=== PATIENT | female | born 1990 | race Two or more races ===

== ENCOUNTER 2020-09-23 14:50 | Outpatient (REF) | payer MEDICAID, SELFPAY ==
[2020-09-25 09:02] LABS: C. trachomatis RNA TMA NOT DETECTED (NOT DETECTED); N. gonorrhoeae RNA TMA NOT DETECTED (NOT DETECTED)
[2020-09-26 18:32] LABS: HPV mRNA E6/E7 Not Detected (Not Detected)
== END 2020-09-23 14:51 | disposition home or self-care (01) ==
LOC: HO.LAB 14:50
PROVIDERS: PCP Nurse Practitioner Family; Referring Provider Nurse Practitioner Family; Visit Provider Obstetrics & Gynecology
DX: Z12.4 Encounter for screening for malignant neoplasm of cervix (principal); R31.29 Other microscopic hematuria; R10.2 Pelvic and perineal pain
CPT/HCPCS: 36415; 81003; 81025; 87086; 87491; 87591; 87624; 88141; 88142

== ENCOUNTER 2020-10-02 15:02 | Outpatient (REF) | payer MEDICAID, SELFPAY ==
--- NOTE | 2020-10-02 15:07 | US_ITS ---
EXAMINATION: ULTRASOUND PELVIS. CLINICAL INFORMATION: Pelvic and perineal pain. COMPARISON: None TECHNIQUE: Transabdominal and transvaginal ultrasound pelvis performed. FINDINGS: The uterus is anteverted and anteflexed measuring 9.1 cm in length, 3.9 cm in AP and 4.9 cm in transverse dimension. The uterus is homogeneous in echotexture without any focal lesions. The endometrial thickness measures 0.6 cm. Echogenic shadowing is seen in the cervical canal likely calcifications. Left ovary measures 2.7 x 2 0.1 to 2.4 cm and volume 7.1 mL. There is a small anechoic cyst measuring 2.2 x 1.5 x 1.6 cm. Right ovary measures 2.3 x 1.6 x 1.3 cm and volume 2.5 mL. The ovaries otherwise are unremarkable. There is trace free fluid in the cul-de-sac US/US pelvic complete IMPRESSION: Simple anechoic cyst measuring 2.2 cm in left ovary. The right ovary and uterus is unremarkable..
--- NOTE | 2020-10-02 15:07 | US_ITS ---
EXAMINATION: ULTRASOUND PELVIS. CLINICAL INFORMATION: Pelvic and perineal pain. COMPARISON: None TECHNIQUE: Transabdominal and transvaginal ultrasound pelvis performed. FINDINGS: The uterus is anteverted and anteflexed measuring 9.1 cm in length, 3.9 cm in AP and 4.9 cm in transverse dimension. The uterus is homogeneous in echotexture without any focal lesions. The endometrial thickness measures 0.6 cm. Echogenic shadowing is seen in the cervical canal likely calcifications. Left ovary measures 2.7 x 2 0.1 to 2.4 cm and volume 7.1 mL. There is a small anechoic cyst measuring 2.2 x 1.5 x 1.6 cm. Right ovary measures 2.3 x 1.6 x 1.3 cm and volume 2.5 mL. The ovaries otherwise are unremarkable. There is trace free fluid in the cul-de-sac US/US transvaginal IMPRESSION: Simple anechoic cyst measuring 2.2 cm in left ovary. The right ovary and uterus is unremarkable..
== END 2020-10-02 15:03 | disposition home or self-care (01) ==
LOC: HO.US 15:02
PROVIDERS: Visit Provider Obstetrics & Gynecology
DX: R10.2 Pelvic and perineal pain (principal)
CPT/HCPCS: 76830; 76856

== ENCOUNTER → 2020-10-07 14:48 | Outpatient (BNVA) | payer MEDICAID, SELFPAY | PROVIDERS: PCP Nurse Practitioner Family; Visit Provider Obstetrics & Gynecology | DX: R31.29 Other microscopic hematuria (principal); R10.2 Pelvic and perineal pain | CPT/HCPCS: 99212 ==

== ENCOUNTER 2020-11-11 13:12 | Outpatient (REF) | payer MEDICAID, SELFPAY ==
[2020-11-13 20:37] LABS: C. trachomatis RNA TMA NOT DETECTED (NOT DETECTED); N. gonorrhoeae RNA TMA NOT DETECTED (NOT DETECTED)
== END 2020-11-11 13:13 | disposition home or self-care (01) ==
LOC: HO.LAB 13:12
PROVIDERS: Visit Provider Obstetrics & Gynecology
DX: R31.29 Other microscopic hematuria (principal); Z30.09 Encounter for other general counseling and advice on contraception
CPT/HCPCS: 36415; 81003; 87491; 87591; 99212

== ENCOUNTER → 2020-11-25 11:17 | Outpatient (BNVA) | payer MEDICAID, SELFPAY | PROVIDERS: Visit Provider Advanced Practice Midwife ==

== ENCOUNTER → 2020-11-29 14:03 | Outpatient (BNVA) | payer MEDICAID, SELFPAY | PROVIDERS: Visit Provider Advanced Practice Midwife | DX: N92.6 Irregular menstruation, unspecified (principal); Z72.51 High risk heterosexual behavior | CPT/HCPCS: 99212 ==

== ENCOUNTER 2020-12-15 10:25 | Emergency (ER) | payer MEDICAID, SELFPAY | END 2020-12-15 11:13 | disposition left against medical advice (07) | PROVIDERS: Emergency Provider Emergency Medicine; PCP Nurse Practitioner Family | DX: R05 Cough (principal) ==

== ENCOUNTER → 2020-12-24 11:05 | Outpatient (BNVA) | payer MEDICAID, SELFPAY | PROVIDERS: PCP Nurse Practitioner Family; Visit Provider Advanced Practice Midwife | DX: Z30.42 Encounter for surveillance of injectable contraceptive (principal) | CPT/HCPCS: 96372; 99211; J1050 ==

== ENCOUNTER 2021-01-21 09:19 | Outpatient (REF) | payer MEDICAID, SELFPAY ==
--- NOTE | ~2021-01-21 | CT_ITS ---
EXAMINATION: CT ABDOMEN AND PELVIS WITHOUT AND WITH CONTRAST CLINICAL INFORMATION: Hematuria COMPARISON: Pelvic ultrasound September [address] of the abdomen and pelvis January 2014 TECHNIQUE: Multidetector volumetric imaging was performed of the abdomen and pelvis before and after the IV administration of 85 mL of Omnipaque 300 intravenous contrast. Sagittal and coronal reformatted images were obtained on the technologist's workstation. This CT examination was performed using dose optimization techniques as appropriate, variously including the following: *Automated exposure control *Adjustment of mA and/or kV according to patient size (this includes techniques or standardized protocols for targeted exams where dose is matched to indication/reason for exam; i.e. extremities or head) *Use of iterative reconstruction technique DLP: 670 mGy-cm FINDINGS: LUNG BASES: The visualized lung bases are unremarkable. LIVER, GALLBLADDER, AND BILIARY TREE: The liver is normal in size, shape, and attenuation. No focal hepatic lesion or biliary ductal dilatation is present. The gallbladder is unremarkable with no evidence of radiopaque gallstones, gallbladder wall thickening, or obvious pericholecystic inflammatory changes. PANCREAS: Unremarkable SPLEEN: Unremarkable ADRENAL GLANDS: Unremarkable KIDNEYS AND URETERS: The kidneys are normal in size, shape, and attenuation. No hydronephrosis, hydroureter, or calculi seen. The collecting systems are normal. The ureters are well-opacified with excreted contrast and are normal. BLADDER: Not optimally distended but appears unremarkable. GASTROINTESTINAL TRACT: The small and large bowel are unremarkable. The appendix is unremarkable. ABDOMINAL WALL: There is a small umbilical hernia containing fat. LYMPH NODES: Normal VASCULAR: Unremarkable PELVIC VISCERA: There are prominent pelvic vessels questionable for pelvic congestion. OSSEOUS STRUCTURES: Unremarkable CT/CT abdomen pelvis wo/w con IMPRESSION: No cause of hematuria seen.
[2021-01-21] MEDS: iohexoL 350 MG/ML 100 ML INFUS..BTL IV (10:32)
== END 2021-01-21 09:20 | disposition home or self-care (01) ==
LOC: HO.CT 09:19
PROVIDERS: Visit Provider Obstetrics & Gynecology
DX: R31.29 Other microscopic hematuria (principal)
CPT/HCPCS: 74178; Q9967

== ENCOUNTER 2021-01-26 09:20 | Emergency (ER) | payer MEDICAID, SELFPAY ==
[2021-01-26 09:29] VITALS: BP 107/77; PULSE 100; RESP 18; TEMP 36.8; O2SAT 98; BMI 22.6
--- NOTE | 2021-01-26 09:38 | ED_ITS ---
HPI - Ear Problem General Chief complaint: Ear Problems Stated complaint: L EAR PAIN Time Seen by Provider: 01/26/21 09:37 Source: patient Mode of arrival: ambulatory Limitations: no limitations History of Present Illness HPI Narrative: 30 years old female came in for evaluation of left ear pain. Left ear pain started 4 days ago, described as throbbing pain, with pain in the left side of the face, runny discharge from the nose, no recent swimming, no fever chills. Related Data Previous Rx's Medication Instructions Recorded medroxyprogesterone 150 mg/mL 150 mg IM [id number] #1 ml 11/25/20 intramuscular suspension amoxicillin-pot clavulanate 1 tab PO Q12H #20 tab 01/26/21 [Augmentin] ibuprofen 600 mg PO Q8H PRN #30 tab 01/26/21 Allergies Allergy/AdvReac Type Severity Reaction Status Date / Time bee pollen [BEE STINGS] Allergy Unknown SWELLING Verified 01/26/21 09:31 SEASONAL ALLERGIES Allergy Intermediate RUNNY NOSE Uncoded 10/07/20 15:00 AND WATERY EYES Seasonal Allergy Unknown Unknown Uncoded 10/07/20 15:00 Review of Systems Review of Systems: All other systems are reviewed and are negative Constitutional: Reports as per HPI and Reports no additional constitutional complaints Eyes: Reports as per HPI and Reports no additional eye complaints Reports system reviewed and no additional complaints, except as documented Cardiovascular: Reports as per HPI and Reports no additional cardiovascular complaints Respiratory: Reports as per HPI and Reports no additional respiratory complaints Gastrointestinal: Reports as per HPI and Reports no additional gastrointestinal complaints Genitourinary: Reports no additional female genitourinary complaints Musculoskeletal: Reports no additional musculoskeletal complaints Skin/Breast: Reports system reviewed and no additional complaints, except as docu Psychiatric: Reports no additional psychiatric complaints Endocrine: Reports no additional endocrine complaints Hematologic/Lymphatic: Reports no additional hematologic/lymphatic complaints Allergic/Immunologic: Reports no additional allergic/immunologic complaints Reports system reviewed and no additional complaints, except as documented and Reports Abnormal speech present [facility] Past Medical History Medical History Anxiety Depression Left anterior shoulder pain Family History Family History Mother Breast cancer Brother Lymphoma Paternal Uncle No problems noted. Social History Social History Alcohol intake: never Smoking Status: Never smoker Advance Directives: Yes Advance Directives Information Provided: No Advance Directives on File: No Patient : No Gender identity: female Physical Exam Vital Signs: Vital Signs: Last Vital Signs Temp 98.2 F 01/26/21 09:29 Pulse 100 01/26/21 09:29 Resp 18 01/26/21 09:29 BP 107/77 01/26/21 09:29 Pulse Ox 98 01/26/21 09:29 Body Mass Index 22.6 Vital signs have been reviewed as appeared to be correct. Blood pressure normal. Heart rate normal. Respiration rate normal. Temperature normal. Oxygen saturation normal. Appearance: Alert. Oriented X3. No acute distress. Head: Normal external exam. Normocephalic. Atraumatic. No Walsh signs noted. No raccoon eyes noted Eyes: PERRLA. EOMI. Conjunctiva and sclera normal. Eyelids normal. ENT: Left TM erythematous, no bulging, normal external canal with no exudate or swelling. Tenderness over left frontal/maxillary sinuses with percussion. Pharynx normal. Uvula midline. Moist mucous membranes. No trismus noted. No drooling noted. No muffled voice noted. Neck: Normal inspection. Neck supple. FROM. No adenopathy. Thyroid Normal. No meningeal signs. No neck mass noted. CVS: Normal heart rate and rhythm. Heart sound normal. No murmurs noted. Pulses normal throughout. Respiratory: No respiratory distress. Painless inspiration. Breath sounds normal. No wheezes/rales/rhonchi noted. Chest nontender. No accessory muscle usage noted or decreased air movement noted. Abdomen: Soft and nontender. Bowel sounds normal in all 4 quadrants. No distention noted. No organomegaly noted. No visible injury noted. Back: No CVA tenderness. Full range of motion noted. Skin: Skin warm and dry. Normal skin color. Normal skin turgor. No rashes/lesions/lacerations noted. Extremities: No lower extremity edema. Extremities exhibit normal range of motion. Extremities nontender. Neuro: Oriented X 3. No motor deficit. No sensory deficit. Reflexes normal. Course Course Course Narrative: Left otitis media/left sinusitis. Start patient on Augmentin/NSAIDs. Discharge Plan Discharge Clinical Impression: Otitis media Qualifiers: Otitis media type: unspecified nonsuppurative Laterality: left Qualified Code(s): H65.92 - Unspecified nonsuppurative otitis media, left ear Sinusitis Qualifiers: Sinusitis location: maxillary Chronicity: acute Recurrence: non-recurrent Qualified Code(s): J01.00 - Acute maxillary sinusitis, unspecified Patient Disposition: Home, Self-Care Prescriptions: New amoxicillin-pot clavulanate [Augmentin] 875-125 mg tablet 1 tab PO Q12H Qty: 20 RF: 0 ibuprofen 600 mg tablet 600 mg PO Q8H PRN (Reason: pain) Qty: 30 RF: 0 No Action medroxyprogesterone [Depo-Provera] 150 mg/mL suspension 150 mg IM [id number] Qty: 1 RF: 3 Referrals: Nithya Walsh NP [Primary Care Provider] - 2 days Stand Alone Forms: Work/School Release
[2021-01-26] MEDS: Amoxicillin/Potassium Clav 875 MG TABLET PO (09:43)
[2021-01-26] MEDS: Ibuprofen 400 MG TABLET PO (09:43)
[2021-01-26 09:46] VITALS: RESP 17
== END 2021-01-26 09:50 | disposition home or self-care (01) ==
PROVIDERS: Emergency Provider Emergency Medicine; PCP Nurse Practitioner Family
DX: H65.92 Unspecified nonsuppurative otitis media, left ear (principal); J01.00 Acute maxillary sinusitis, unspecified; H92.02 Otalgia, left ear; Z79.899 Other long term (current) drug therapy
CPT/HCPCS: 99283

== ENCOUNTER → 2021-01-27 13:48 | Outpatient (BNVA) | payer MEDICAID, SELFPAY | PROVIDERS: PCP Nurse Practitioner Family; Visit Provider Obstetrics & Gynecology ==

== ENCOUNTER 2021-02-12 13:44 | Outpatient (REF) | payer MEDICAID, SELFPAY ==
[2021-02-13 06:41] LABS: CT PCR NOT DETECTED (Not Detect.); NG PCR NOT DETECTED (Not Detect.)
[2021-02-13 08:39] LABS: BV Int Neg Control Negative (Negative); BV Int Pos Control Positive (Positive)
== END 2021-02-12 13:45 | disposition home or self-care (01) ==
LOC: HO.LAB 13:44
PROVIDERS: PCP Nurse Practitioner Family; Visit Provider Advanced Practice Midwife
DX: N89.8 Other specified noninflammatory disorders of vagina (principal); B37.3 Candidiasis of vulva and vagina; Z20.2 Contact with and (suspected) exposure to infections with a predominantly sexual mode of transmission
CPT/HCPCS: 87480; 87491; 87510; 87591; 87660; 99212

== ENCOUNTER 2021-03-05 11:07 | Outpatient (REF) | payer MEDICAID, SELFPAY ==
[2021-03-05 13:14] LABS: Urine Cytology See Pathology rpt
== END 2021-03-05 11:08 | disposition home or self-care (01) ==
LOC: HO.LNP 11:07
PROVIDERS: PCP Nurse Practitioner Family
DX: R31.9 Hematuria, unspecified (principal)
CPT/HCPCS: 88112; 99202

== ENCOUNTER → 2021-03-14 14:16 | Outpatient (BNVA) | payer MEDICAID, SELFPAY | PROVIDERS: PCP Nurse Practitioner Family; Visit Provider Advanced Practice Midwife | DX: Z30.42 Encounter for surveillance of injectable contraceptive (principal) | CPT/HCPCS: 96372; 99211 ==

== ENCOUNTER 2021-04-05 09:55 | Emergency (ER) | payer MEDICAID, SELFPAY ==
--- NOTE | ~2021-04-05 | XR_ITS ---
EXAMINATION: RIGHT ELBOW AND RIGHT FOOT CLINICAL INFORMATION: Fall with elbow and right foot pain. COMPARISON: April 18, 2011 of the right elbow TECHNIQUE: Three-view right elbow and three-view right foot FINDINGS: Right foot: There is no evidence of acute fracture or dislocation of the right foot. No significant soft tissue swelling is appreciated. Joint spaces are maintained. Right elbow: 3 views of the right elbow do not demonstrate any evidence of acute fracture or dislocation. No right elbow effusion is seen. XR/XR foot RT min 3V IMPRESSION: No significant right foot or right elbow abnormality is appreciated.
--- NOTE | ~2021-04-05 | XR_ITS ---
EXAMINATION: RIGHT ELBOW AND RIGHT FOOT CLINICAL INFORMATION: Fall with elbow and right foot pain. COMPARISON: April 18, 2011 of the right elbow TECHNIQUE: Three-view right elbow and three-view right foot FINDINGS: Right foot: There is no evidence of acute fracture or dislocation of the right foot. No significant soft tissue swelling is appreciated. Joint spaces are maintained. Right elbow: 3 views of the right elbow do not demonstrate any evidence of acute fracture or dislocation. No right elbow effusion is seen. XR/XR elbow RT min 3V IMPRESSION: No significant right foot or right elbow abnormality is appreciated.
[2021-04-05 10:10] VITALS: BP 116/78; PULSE 87; RESP 16; TEMP 36.8; O2SAT 98; BMI 25.0
--- NOTE | 2021-04-05 10:19 | ED_ITS ---
HPI - Fall General Chief Complaint: Fall Stated Complaint: FELL DOWN STAIRS Time Seen by Provider: 04/05/21 10:17 Source: patient Mode of arrival: ambulatory Limitations: no limitations History of Present Illness HPI Narrative: 31-year-old female came in for evaluation of right elbow/right foot pain after fall. Started last night when she was going down stairs holding a garbage bag in her left hand, lost balance and fell down few steps landing on right elbow and right heel. Patient is able to ambulate but today is getting worse due to pain in right heel. Related Data Previous Rx's Medication Instructions Recorded medroxyprogesterone 150 mg/mL 150 mg IM [id number] #1 ml 11/25/20 intramuscular suspension ibuprofen 600 mg PO Q8H PRN #30 tab 01/26/21 fluconazole 150 mg tablet 150 mg PO Q3D #2 tab 02/12/21 metronidazole 500 mg tablet 500 mg PO BID 7 Days #14 tab 02/13/21 Allergies Allergy/AdvReac Type Severity Reaction Status Date / Time bee pollen [BEE STINGS] Allergy Unknown SWELLING Verified 03/27/21 12:33 SEASONAL ALLERGIES Allergy Intermediate RUNNY NOSE Uncoded 03/27/21 12:33 AND WATERY EYES Seasonal Allergy Unknown Unknown Uncoded 03/27/21 12:33 Review of Systems Review of Systems: All other systems are reviewed and are negative Constitutional: Reports as per HPI and Reports no additional constitutional complaints Eyes: Reports as per HPI and Reports no additional eye complaints Reports system reviewed and no additional complaints, except as documented Cardiovascular: Reports as per HPI and Reports no additional cardiovascular complaints Respiratory: Reports as per HPI and Reports no additional respiratory complaints Gastrointestinal: Reports as per HPI and Reports no additional gastrointestinal complaints Genitourinary: Reports no additional female genitourinary complaints Musculoskeletal: Reports no additional musculoskeletal complaints Skin/Breast: Reports system reviewed and no additional complaints, except as docu Psychiatric: Reports no additional psychiatric complaints Endocrine: Reports no additional endocrine complaints Hematologic/Lymphatic: Reports no additional hematologic/lymphatic complaints Allergic/Immunologic: Reports no additional allergic/immunologic complaints Reports system reviewed and no additional complaints, except as documented and Reports Abnormal speech present [facility] Past Medical History Medical History Aftercare following left shoulder joint replacement surgery Anxiety Depression Left anterior shoulder pain Surgical History H/O arthroscopy of shoulder Family History Family History Mother Breast cancer Brother Lymphoma Paternal Uncle No problems noted. Social History Social History Alcohol intake: never Advance Directives: Yes Advance Directives Information Provided: No Advance Directives on File: No Patient : No Gender identity: female Physical Exam Vital Signs: Vital Signs: Last Vital Signs Temp 98.2 F 04/05/21 10:10 Pulse 87 04/05/21 10:10 Resp 16 04/05/21 10:10 BP 116/78 04/05/21 10:10 Pulse Ox 98 04/05/21 10:10 Body Mass Index 25.0 Vital signs have been reviewed as appeared to be correct. Blood pressure normal. Heart rate normal. Respiration rate normal. Temperature normal. Oxygen saturation normal. Appearance: Alert. Oriented X3. No acute distress. Head: Normal external exam. Normocephalic. Atraumatic. No Walsh signs noted. No raccoon eyes noted Eyes: PERRLA. EOMI. Conjunctiva and sclera normal. Eyelids normal. ENT: TM's Normal. Pharynx normal. Uvula midline. Moist mucous membranes. No trismus noted. No drooling noted. No muffled voice noted. Neck: Normal inspection. Neck supple. FROM. No adenopathy. Thyroid Normal. No meningeal signs. No neck mass noted. CVS: Normal heart rate and rhythm. Heart sound normal. No murmurs noted. Pulses normal throughout. Respiratory: No respiratory distress. Painless inspiration. Breath sounds normal. No wheezes/rales/rhonchi noted. Chest nontender. No accessory muscle usage noted or decreased air movement noted. Abdomen: Soft and nontender. Bowel sounds normal in all 4 quadrants. No distention noted. No organomegaly noted. No visible injury noted. Back: No CVA tenderness. Full range of motion noted. Skin: Skin warm and dry. Normal skin color. Normal skin turgor. No rashes/lesions/lacerations noted. Extremities: Right upper extremity in held in flexion position, tenderness over medial aspect of the right elbow, no deformity, no hematoma, no limited range of motion due to pain. Right here tenderness, no step-off, no deformity. Neuro: Oriented X 3. No motor deficit. No sensory deficit. Reflexes normal. Course Course Course Narrative: Assessment and plan. 31-year-old female status post fall with right elbow/right heel pain. X-ray show no acute fracture. Will sling the right elbow, reassure, use NSAIDs p.r.n. pain. MDM - Fall Imaging Data Right elbow/right foot x-ray: Radiologist's impression: IMPRESSION: No significant right foot or right elbow abnormality is appreciated. Discharge Plan Discharge Clinical Impression: Contusion of elbow, right Qualifiers: Encounter type: initial encounter Qualified Code(s): S50.01XA - Contusion of right elbow, initial encounter Contusion of foot, right Qualifiers: Encounter type: initial encounter Qualified Code(s): S90.31XA - Contusion of right foot, initial encounter Patient Disposition: Home, Self-Care Instructions: Contusion in Adults (ED) Prescriptions: No Action metronidazole [Flagyl] 500 mg tablet 500 mg PO BID 7 Days Qty: 14 RF: 0 ibuprofen 600 mg tablet 600 mg PO Q8H PRN (Reason: pain) Qty: 30 RF: 0 fluconazole 150 mg tablet 150 mg PO Q3D Qty: 2 RF: 2 medroxyprogesterone [Depo-Provera] 150 mg/mL suspension 150 mg IM [id number] Qty: 1 RF: 3 Referrals: Nithya Walsh, DISPUTE COORDINATOR [Primary Care Provider] - 2 days
[2021-04-05] MEDS: Ibuprofen 600 MG TABLET PO (10:26)
== END 2021-04-05 11:43 | disposition home or self-care (01) ==
PROVIDERS: Emergency Provider Emergency Medicine; PCP Nurse Practitioner Family
DX: S50.01XA Contusion of right elbow, initial encounter (principal); S90.31XA Contusion of right foot, initial encounter; W10.9XXA Fall (on) (from) unspecified stairs and steps, initial encounter; Y93.E9 Activity, other interior property and clothing maintenance; Y92.038 Other place in apartment as the place of occurrence of the external cause; Y99.9 Unspecified external cause status
CPT/HCPCS: 73080; 73630; 99284

== ENCOUNTER → 2021-06-06 13:38 | Outpatient (BNVA) | payer MEDICAID, SELFPAY | PROVIDERS: Visit Provider Advanced Practice Midwife | DX: Z30.42 Encounter for surveillance of injectable contraceptive (principal) | CPT/HCPCS: 96372; 99211 ==

== ENCOUNTER 2021-08-09 03:27 | Emergency (ER) | payer MEDICAID, SELFPAY ==
[2021-08-09 03:42] VITALS: BP 109/73; PULSE 82; RESP 16; TEMP 36.8; O2SAT 98; BMI 25.0
[2021-08-09 04:06] LABS: Strep A Nucleic Acid Negative (Negative)
--- NOTE | 2021-08-09 04:48 | ED_ITS ---
HPI - Ear Problem General Chief complaint: Ear Problems Stated complaint: ear pain x4 days Time Seen by Provider: 08/09/21 04:47 Source: patient Mode of arrival: ambulatory History of Present Illness HPI Narrative: 31-year-old female who presents with left ear pain without associated fever, chills but states she has had a sore throat and is had also having pain along the the left side of her jaw. She denies noting any vesicles or sensing a burning sensation along med distribution. On talking with the patient she then realize that she actually has an ?infected left lower wisdom tooth?. Related Data Previous Rx's Medication Instructions Recorded medroxyprogesterone 150 mg/mL 150 mg IM [id number] #1 ml 11/25/20 intramuscular suspension (Depo-Provera) ibuprofen 600 mg tablet 600 mg PO Q8H PRN #30 tab 01/26/21 fluconazole 150 mg tablet 150 mg PO Q3D #2 tab 02/12/21 metronidazole 500 mg tablet 500 mg PO BID 7 Days #14 tab 02/13/21 (Flagyl) amoxicillin 875 mg-potassium 1 tab PO Q12H 5 Days #10 tab 08/09/21 clavulanate 125 mg tablet (Augmentin) Allergies Allergy/AdvReac Type Severity Reaction Status Date / Time bee pollen [BEE STINGS] Allergy Unknown SWELLING Verified 07/02/21 09:44 SEASONAL ALLERGIES Allergy Intermediate RUNNY NOSE Uncoded 03/27/21 12:33 AND WATERY EYES Seasonal Allergy Unknown Unknown Uncoded 03/27/21 12:33 Review of Systems Review of Systems: Pertinent positives and negatives as stated in HPI 10 point review of systems is otherwise negative. [facility] Past Medical History Source: nursing notes reviewed Medical History Aftercare following left shoulder joint replacement surgery Anxiety Depression Left anterior shoulder pain Urge and stress incontinence Surgical History H/O arthroscopy of shoulder Family History Family History Mother Breast cancer Brother Lymphoma Paternal Uncle No problems noted. Social History Social History Alcohol intake: never Advance Directives: No Advance Directives Information Provided: Yes Patient : No Gender identity: Female Physical Exam Vital Signs: Vital Signs: Last Vital Signs Temp 98.2 F 08/09/21 03:42 Pulse 82 08/09/21 03:42 Resp 16 08/09/21 03:42 BP 109/73 08/09/21 03:42 Pulse Ox 98 08/09/21 03:42 Body Mass Index 25.0 VITAL SIGNS: Reviewed. GENERAL: Well developed, well nourished, in no acute distress. HEAD: Normocephalic/atraumatic EYES: PERRLA, EOMI EARS: Ext canals without abnormality, TMs non-bulging and non-erythematous NOSE: Nares patent bilateral OROPHARYNX: no oral lesions noted, posterior pharynx clear and non-erythematous without noted tonsillar enlargement/erythema/exudates, but noted discoloration and swelling at left lower was and 2 NECK: Supple, left posterior occipital adenopathy LUNGS: Normal breath sounds. SpO2<98> CARDIOVASCULAR: Regular rate and rhythm without noted murmurs ABDOMEN: Soft, non-tender, non-distended with bowel sounds. SKIN: Inspection of the skin reveals no rashes NEUROLOGIC: Alert and oriented x 4. Course Course Course Narrative: 31-year-old female with history and clinical presentation suggestive left lower wisdom tooth infection is eye plea contributing to patient's jaw and ear pain. History and clinical findings in consistent with shingles. Patient given initial antibiotics here in the emergency room as well as combination analgesics. She was then discharged home in stable condition. MDM - Ear Lab Data Labs: Lab Results 08/09/21 Range/Units 03:54 S. pyogenes GrpA ANTONINA Negative (Negative) Discharge Plan Discharge Clinical Impression: Dental infection Patient Disposition: Home, Self-Care Instructions: Toothache (ED) Additional Instructions: 1. Please complete the entire course of antibiotics. 2. Follow-up with a dentist in the next 2-3 days for evaluation and further management of your left lower wisdom tooth. 3. Recommend [id number] Tylenol/ibuprofen as needed for pain control. Return to the ER for acute worsening of symptoms. Prescriptions: New amoxicillin-pot clavulanate [Augmentin] 875-125 mg tablet 1 tab PO Q12H 5 Days Qty: 10 RF: 0 No Action metronidazole [Flagyl] 500 mg tablet 500 mg PO BID 7 Days Qty: 14 RF: 0 ibuprofen 600 mg tablet 600 mg PO Q8H PRN (Reason: pain) Qty: 30 RF: 0 fluconazole 150 mg tablet 150 mg PO Q3D Qty: 2 RF: 2 medroxyprogesterone [Depo-Provera] 150 mg/mL suspension 150 mg IM [id number] Qty: 1 RF: 3
[2021-08-09] MEDS: Acetaminophen 325 MG TABLET 975 MG PO (05:20)
[2021-08-09] MEDS: Ketorolac Tromethamine 15 MG/ML VIAL IM (05:21)
[2021-08-09] MEDS: Amoxicillin/Potassium Clav 875 MG TABLET PO (05:21)
== END 2021-08-09 05:26 | disposition home or self-care (01) ==
PROVIDERS: Emergency Provider Student in an Organized Health Care Education/Training Program
DX: K04.7 Periapical abscess without sinus (principal)
CPT/HCPCS: 36415; 87651; 96372; 99283; 99284; J1885

== ENCOUNTER 2021-09-25 13:05 | Outpatient (REF) | payer MEDICAID, SELFPAY ==
[2021-09-26 13:15] LABS: CT PCR NOT DETECTED (Not Detect.); NG PCR NOT DETECTED (Not Detect.)
[2021-09-26 14:21] LABS: BV Int Neg Control Negative (Negative); BV Int Pos Control Positive (Positive)
== END 2021-09-25 13:06 | disposition home or self-care (01) ==
LOC: HO.LAB 13:05
PROVIDERS: Visit Provider Advanced Practice Midwife
DX: Z01.419 Encounter for gynecological examination (general) (routine) without abnormal findings (principal); N64.4 Mastodynia; D22.9 Melanocytic nevi, unspecified; Z80.3 Family history of malignant neoplasm of breast
CPT/HCPCS: 87480; 87491; 87510; 87591; 87660

== ENCOUNTER → 2021-10-02 12:32 | Outpatient (BNVA) | payer MEDICAID, SELFPAY | PROVIDERS: Visit Provider Advanced Practice Midwife | DX: Z30.42 Encounter for surveillance of injectable contraceptive (principal) | CPT/HCPCS: 96372; 99211 ==

== ENCOUNTER → 2022-01-02 09:10 | Outpatient (BNVA) | payer MEDICAID, SELFPAY | PROVIDERS: PCP Nurse Practitioner Family; Visit Provider Advanced Practice Midwife | DX: Z30.42 Encounter for surveillance of injectable contraceptive (principal) | CPT/HCPCS: 96372; 99211 ==

== ENCOUNTER → 2022-04-22 10:06 | Outpatient (BNVA) | payer MEDICAID, SELFPAY | PROVIDERS: PCP Nurse Practitioner Family; Visit Provider Advanced Practice Midwife | DX: Z30.42 Encounter for surveillance of injectable contraceptive (principal); Z32.02 Encounter for pregnancy test, result negative | CPT/HCPCS: 81025; 99212 ==

== ENCOUNTER → 2022-04-28 09:13 | Outpatient (BNVA) | payer MEDICAID, SELFPAY | PROVIDERS: PCP Nurse Practitioner Family; Visit Provider Advanced Practice Midwife | DX: Z30.42 Encounter for surveillance of injectable contraceptive (principal) | CPT/HCPCS: 96372; 99211 ==

== ENCOUNTER 2022-07-22 15:30 | Outpatient (REF) | payer MEDICAID, SELFPAY ==
[2022-07-23 09:06] LABS: BV Int Neg Control Negative (Negative); BV Int Pos Control Positive (Positive)
== END 2022-07-22 15:31 | disposition home or self-care (01) ==
LOC: HO.LNP 15:30
PROVIDERS: Visit Provider Advanced Practice Midwife
DX: Z30.42 Encounter for surveillance of injectable contraceptive (principal); N89.8 Other specified noninflammatory disorders of vagina
CPT/HCPCS: 87480; 87510; 87660; 96372; 99212

== ENCOUNTER → 2022-10-09 11:09 | Outpatient (BNVA) | payer MEDICAID, SELFPAY | PROVIDERS: PCP Nurse Practitioner Family; Visit Provider Advanced Practice Midwife | DX: Z13.89 Encounter for screening for other disorder (principal) ==

== ENCOUNTER → 2022-10-23 14:16 | Outpatient (BNVA) | payer MEDICAID, SELFPAY | PROVIDERS: PCP Nurse Practitioner Family; Visit Provider Obstetrics & Gynecology | DX: Z30.42 Encounter for surveillance of injectable contraceptive (principal) | CPT/HCPCS: 96372; 99211 ==

== ENCOUNTER → 2023-01-28 14:56 | Outpatient (BNVA) | payer MEDICAID, SELFPAY | PROVIDERS: PCP Nurse Practitioner Family; Visit Provider Obstetrics & Gynecology | DX: Z30.42 Encounter for surveillance of injectable contraceptive (principal) | CPT/HCPCS: 96372; 99211 ==

== ENCOUNTER 2023-04-02 10:15 | Emergency (ER) | payer OTHER, SELFPAY ==
[2023-04-02 11:29] VITALS: BP 110/72; PULSE 66; RESP 16; TEMP 35.9; O2SAT 99; BMI 22.8
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
== END 2023-04-02 11:46 | disposition home or self-care (01) ==
LOC: HO.ED 11:43
PROVIDERS: Emergency Provider Emergency Medicine; PCP Nurse Practitioner Family
DX: Z04.1 Encounter for examination and observation following transport accident (principal); M54.2 Cervicalgia
CPT/HCPCS: 99282; 99283

== ENCOUNTER 2023-05-06 09:32 | Outpatient (AMB) | payer OTHER, SELFPAY ==
[2023-05-06 09:37] VITALS: BP 90/54; BMI 21.9
--- NOTE | 2023-05-06 09:37 | A.OFFVIS_ITS ---
Intake Vital Signs 05/06/23 09:37 Height 5 ft 6 in Weight 136 lb BMI 21.9 BP 90/54 L Intake Visit Reasons: Re start DEPO Allergies bee pollen [BEE STINGS] Allergy (Unknown, Verified 05/06/23 09:41) SWELLING SEASONAL ALLERGIES Allergy (Intermediate, Uncoded 10/09/22 11:28) RUNNY NOSE AND WATERY EYES HPI HPI Comments History of Present Illness Details She is here for Depo- Provera injection and is overdue by a week. Denies UPI for the last 14 days. Reports left sided sharp pelvic pain in ovary, pressure with urination and vaginal discharge. Voices concerns of bone effects while using Depo. She denies any contraindications to control such as: migraines with aura, history of DVT or pulmonary emboli, high blood pressure, liver disease, thrombolic disorders, Lupus, +ALICE, or smoking. [facility] Medical History Aftercare following left shoulder joint replacement surgery Anxiety Depression Encounter for management and injection of depo-Provera Female pelvic pain FH: breast cancer in first degree relative Left anterior shoulder pain Microhematuria Pelvic pain Sensation of pressure in bladder area Surveillance for Depo-Provera contraception Urge and stress incontinence Vaginal Discharge Vaginal irritation Surgical History H/O arthroscopy of shoulder Family History Mother Breast cancer Cervical cancer, Onset Age: 40 Brother Lymphoma Paternal Uncle No problems noted. 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 Current occupational exposures/hazards: No Sexual orientation: Straight/Heterosexual Gender identity: Female Female Reproductive History Menstrual Age of Menarche: 12 Physical Exam Vital Signs: Last Vital Signs BP 90/54 L 05/06/23 09:37 BMI result Body Mass Index 21.9 Const General: cooperative, healthy appearing, comfortable, no acute distress, well developed, alert and awake Other: mildly tender throughout the pelvis General: Yes bladder normal to palpation External Female Exam: normal external appearance and normal appearance of the urethra Speculum Exam - Vagina: normal appearance of the vagina, normal palpation and normal vaginal discharge Speculum Exam - Cervix: normal appearance of the cervix and normal palpation Bimanual exam- vagina & uterus: normal bimanual exam, normal palpation, bladder normal to palpation and normal palpation Bimanual Exam- Adnexa, other: normal adnexae and no masses Office Procedures Depo Questionnaire If YES to any of the following questions, please consult a provider. Date of last injection: 01/28/23 Date of last gynecology exam: 10/09/22 Menstrual pattern since last injection has been: Not Applicable test in office results: Negative Irregular bleeding?: No Breast lumps or other breast changes?: No Changes in weight or appetite?: No Depression or changes in mood?: No Abnormal hair growth or loss?: No Skin problems (rash, acne, discoloration)?: No Pain at the injection site?: No Headaches?: No Nervousness?: No Abdominal pain or cramping?: Yes (pelvic pain) Dizziness or nausea?: No Fatigue or weakness?: No Decrease in sexual drive?: No Chest pain or shortness of breath?: No Swelling in arms or legs?: No Form completed by?: Edwin ramos LPN Office Meds Depo-Provera Performing Provider: Olivia Lima CNM Administered by: Hawa Ramos LPN on 05/06/23 10:28 Dose Route Admin Location Lot Number Expiration Date NDC [employer] 150 mg IM rt. deltoid [id number] 06/12/25 54223-640-53 [facility] Results AMB Test Urine AMB Test Urine Negative Last Edit by NATHAN Ocampo on 05/06/23 09:52 AMB Urinalysis, Automated UA Leukoctes 0.5 Jeffrey/uL Last Edit by NATHAN Ocampo on 05/06/23 10:3 4 UA Nitrite Negative Last Edit by NATHAN Ocampo on 05/06/23 10:34 UA Urobilinogen 0 mg/dL Last Edit by NATHAN Ocampo on 05/06/23 10:3 4 UA Protein 1 mg/dL Last Edit by NATHAN Ocampo on 05/06/23 10:34 UA pH 6.0 Last Edit by Rose Enriqueta Corado A on 05/06/23 10:34 UA Blood 3 [place]/uL Last Edit by Rose Enriqueta Houghbrendaanaid RMA on 05/06/23 10:34 UA Specific [place] 1.020 Last Edit by Rose Enriqueta Houghbrendaanaid RMA on 05/06/23 10:34 UA Ketone Negative Last Edit by Rose Enriqueta Corado A on 05/06/23 10:34 UA Bilirubin 0 mg/dL Last Edit by Rose Enriqueta Corado RMA on 05/06/23 10:34 UA Glucose 0 mg/dL Last Edit by Rosejair Corado A on 05/06/23 10:34 Results Reviewed Results Reviewed: Laboratory Last Values Urine pH (Auto) 6.0 05/06/23 10:19 Specific [place] (Auto) 1.020 05/06/23 10:19 Urine Protein (Auto) 1 mg/dL 05/06/23 10:19 Glucose (UA)(Auto) 0 mg/dL 05/06/23 10:19 Urine Ketones (Auto) Negative 05/06/23 10:19 Urine Blood (Auto) 3 [place]/uL 05/06/23 10:19 Urine Nitrite (Auto) Negative 05/06/23 10:19 Urine Bilirubin (Auto) 0 mg/dL 05/06/23 10:19 Urine Urobilinogen (Auto) 0 mg/dL 05/06/23 10:19 Leukocyte Esterase (Auto) 0.5 [place]/uL 05/06/23 10:19 [facility] Clinic Negative 05/06/23 09:51 Assessment & Plan Assessment & Plan (1) Encounter for management and injection of depo-Provera: Code(s): Z30.42 - Encounter for surveillance of injectable contraceptive Plan: Discussed: Reviewed use, 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 She was instructed to go to ER if she develops loss of vision, severe headache that does not resolve, chest pain, difficulty breathing, abdominal pain, or pain or tenderness in extremity or new breast lumps. Call the office with any concerns. Encouraged to use condoms for back up plan for 7 days. Return for Depo injection every 12 weeks. Encouraged to schedule AG. All of her questions and concerns were addressed to the best of my ability and shared decision making. She is agreeable to plan of care. (2) Pelvic pain: Code(s): R10.2 - Pelvic and perineal pain Plan: Pelvic US ordered. Follow up in person for results. If experience abdominal pain or increase in pelvic pain, report to ED. BV testing and GC/CT panel done today. Await results and treat accordingly. (3) Vaginal Discharge: Code(s): N89.8 - Other specified noninflammatory disorders of vagina (4) Sensation of pressure in bladder area: Code(s): R39.89 - Other symptoms and signs involving the genitourinary system Orders: Orders US pelvic and transvaginal Today R10.2 - Pelvic and perineal pain Urine Culture Today R10.2 - Pelvic and perineal pain, R39.89 - Other symptoms and signs involving the genitourinary system Bacterial Vaginosis Panel Today N89.8 - Other specified noninflammatory disorders of vagina, R10.2 - Pelvic and perineal pain CT NG by PCR Today N89.8 - Other specified noninflammatory disorders of vagina, R10.2 - Pelvic and perineal pain AMB Medroxyprogesterone Injection Patient Supplied Today Z30.42 - Encounter for surveillance of injectable contraceptive AMB HCG Urine Test Today Z32.02 - Encounter for test, result negative AMB Urinalysis Automated Today R10.2 - Pelvic and perineal pain, R39.89 - Other symptoms and signs involving the genitourinary system Coding Level of Care Code Est Pt Level 4 (13654) Diagnoses Encounter for management and injection of depo-Provera Z30.42 Pelvic pain R10.2 Vaginal Discharge N89.8 Sensation of pressure in bladder area R39.89
== END 2023-05-06 10:22 | disposition home or self-care (01) ==
LOC: HO.HWSW 09:32
PROVIDERS: PCP Nurse Practitioner Family; Visit Provider Advanced Practice Midwife
DX: Z30.42 Encounter for surveillance of injectable contraceptive (principal); R10.2 Pelvic and perineal pain; N89.8 Other specified noninflammatory disorders of vagina; R39.89 Other symptoms and signs involving the genitourinary system; Z32.02 Encounter for pregnancy test, result negative
CPT/HCPCS: 99214

== ENCOUNTER 2023-05-06 09:32 | Outpatient (REF) | payer OTHER, SELFPAY | END 2023-05-06 09:33 | disposition home or self-care (01) | LOC: HO.LNP 09:32 | PROVIDERS: PCP Nurse Practitioner Family; Visit Provider Advanced Practice Midwife | DX: N94.89 Other specified conditions associated with female genital organs and menstrual cycle (principal); R10.2 Pelvic and perineal pain; N89.8 Other specified noninflammatory disorders of vagina; R39.89 Other symptoms and signs involving the genitourinary system; Z30.42 Encounter for surveillance of injectable contraceptive | CPT/HCPCS: 96372; 99212; J1050 ==

== ENCOUNTER 2023-05-06 10:19 | Outpatient (REF) | payer OTHER, SELFPAY ==
[2023-05-07 04:06] LABS: CT PCR NOT DETECTED (Not Detect.); NG PCR NOT DETECTED (Not Detect.)
[2023-05-07 15:42] LABS: BV Int Neg Control Negative (Negative); BV Int Pos Control Positive (Positive)
== END 2023-05-06 10:20 | disposition home or self-care (01) ==
LOC: HO.LAB 10:19
PROVIDERS: Visit Provider Advanced Practice Midwife
DX: N89.8 Other specified noninflammatory disorders of vagina (principal); R10.2 Pelvic and perineal pain; R39.89 Other symptoms and signs involving the genitourinary system; Z32.02 Encounter for pregnancy test, result negative
CPT/HCPCS: 0353U; 81003; 81025; 87086; 87480; 87510; 87660

== ENCOUNTER 2023-05-31 10:54 | Outpatient (REF) | payer OTHER, SELFPAY ==
--- NOTE | ~2023-05-31 | US_ITS ---
EXAMINATION: US PELVIS CLINICAL INFORMATION: Pelvic and perineal pain LMP: Unknown COMPARISON: Pelvic ultrasound 10/02/2020 TECHNIQUE: Ultrasound of the pelvis is performed using both transabdominal and transvaginal transducers along with Doppler. Transvaginal imaging is performed due to inadequate visualization transabdominally. FINDINGS: Uterus: The uterus is anteverted and measures 7.5 x 3.8 x 5.5 cm. Prominent vessels are seen within the periphery of the uterus. The endometrium measures 0.3 cm. Trace fluid is seen within the fundal aspect of the endometrium. Adnexa: Both ovaries are visualized. There is normal color flow to the adnexa. There is no ovarian torsion. There is no pelvic ascites or fluid collection. Right ovary measures 2.7 x 1.7 x 1.5 cm. Volume 3.6 mL. Left ovary measures 3.8 x 1.8 x 2.3 cm. Volume 7.1 mL. 1.7 x 0.8 x 1.5 cm follicle most likely represents a dominant follicle is a normal finding. No follow-up imaging of this finding is recommended. There is prominent vascularity in the left adnexa consistent with pelvic congestion syndrome. US/US pelvic and transvaginal IMPRESSION: 1. Prominent vessels are seen within the periphery of the uterus. 2. Prominent vascularity in the left adnexa consistent with pelvic congestion syndrome. 3. No significant finding within the left ovary. 4. Normal appearance of the right ovary.
== END 2023-05-31 10:55 | disposition home or self-care (01) ==
LOC: HO.US 10:54
PROVIDERS: PCP Nurse Practitioner Family; Visit Provider Advanced Practice Midwife
DX: R10.2 Pelvic and perineal pain (principal)
CPT/HCPCS: 76830; 76856

== ENCOUNTER 2023-06-16 11:23 | Outpatient (AMB) | payer OTHER, SELFPAY ==
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
[2023-06-16 11:46] VITALS: BP 96/54; BMI 21.8
== END 2023-06-16 12:08 | disposition home or self-care (01) ==
PROVIDERS: PCP Nurse Practitioner Family; Visit Provider Advanced Practice Midwife
DX: Z71.2 Person consulting for explanation of examination or test findings (principal); N64.4 Mastodynia; N94.89 Other specified conditions associated with female genital organs and menstrual cycle
CPT/HCPCS: 99213

== ENCOUNTER → 2023-06-16 11:23 | Outpatient (BNVA) | payer OTHER, SELFPAY | PROVIDERS: PCP Nurse Practitioner Family; Visit Provider Advanced Practice Midwife | DX: Z71.2 Person consulting for explanation of examination or test findings (principal); N64.4 Mastodynia; N94.89 Other specified conditions associated with female genital organs and menstrual cycle; Z80.3 Family history of malignant neoplasm of breast | CPT/HCPCS: 99212 ==

== ENCOUNTER 2023-07-05 14:56 | Outpatient (AMB) | payer OTHER, SELFPAY ==
--- NOTE | 2023-07-05 14:59 | MHC.OFFVIS ---
Intake Intake Visit Reasons: Vaginal itch Intake Note: pt c/o vag irritation and swelling after using pashto spring 4 days ago Weblogic Administrator: Weblogic Administrator Present (Nichole) Allergies bee pollen [BEE STINGS] Allergy (Unknown, Verified 07/05/23 15:06) SWELLING SEASONAL ALLERGIES Allergy (Intermediate, Uncoded 06/16/23 11:47) RUNNY NOSE AND WATERY EYES Medication List - Last Reviewed 07/05/23 by NATHAN Ocampo cholecalciferol (vitamin D3) 1,250 mcg PO QWEEK mecobalamin (vitamin B12) mcg IM medroxyprogesterone (Depo-Provera) 150 mg IM [id number] Is last menstrual period known: Yes Last menstrual period: 07/01/23 HPI Vaginal itch HPI Details Patient is here because about 4 days ago she washed with [place] soap and then she had sex with her that night and ever since then she started being much more itchy and inflamed and her vaginal area she has been using just cool water and trying to not scratch. She thinks that it was the soap that really set her up, then she started bleeding, light though she does not really get a period very much since she has been on Depo for so many years she loves the Depo but after having a long conversation at her more recent visit about the thinning of her bones she does not want to have that happen. She also is deficient in vitamin-D and has been taking that through her primary and also getting vitamin B12 shots as she was having trouble taking that. She has had 4 pregnancies and 2 were miscarriages any even with those she had severe hyper emesis gravidarum and with the 2 pregnancies that she carried she had severe hyperemesis for the entire 9 months. She works night shifts and she has been losing weight because she has trouble eating she is so exhausted she fixes the meals for her children but then is too tired to really eat well herself. She says all her coworkers have the opposite problem. She also recently had a visit where she was discussing her varicose veins in her pelvis that were contributing to pelvic pain. As part of this whole discussion she has been re considering her use of Depo-Provera for control and though she loves it she thinks she will be stopping but she has not fully decided what she will do instead so much of this visit was actually spent discussing options for her given that she is 33 years old combination control pills and their analogs the patches and rings would probably not be the best options to start at this stage. Discussed the other options available including Nexplanon and its side effects Mirena and its side effects and ParaGard IUD. (norethindrone OCPs were not addressed is in that the patient's reason for stopping pills in the past was forgetting). I gave her information about all 3 methods and she is going to think about it some more and eat if she decides before her next visit she could come in and signed the consent forms for methods that need to be ordered through her pharmacy provider or else she could come for the consultation visit and decide there. In terms of the vaginal itch she now has bleeding that is very much like a periods so while her vulva appears a little bit swollen it is not possible to fully see whether not it is consistent with yeast though it sounds like it could possibly be either chemical irritation from the Tristan[place] Spring or yeast. Discussed that when blood is present very often Gardnerella will be detected on testing so that is also possibility but it may not be the cause of the issue. Full teaching about all the methods and their side effects were done. Also discussed that I will treat the yeast as to her preference. Given that she has the menstrual flow now vaginal cream may not be too much of benefit but she thinks she preferred the pill in any case so I will prescribe Diflucan and she asked if she could have a cream in case she still has some symptoms. So I will prescribe both to her [facility] pharmacy. She has future appointments set up so she will be seen as scheduled. [facility] Medical History (Updated 07/05/23 @ 15:49 by Maryann Stokes CNM) Pelvic congestion syndrome Breast pain, right Sensation of pressure in bladder area Vaginal Discharge Pelvic pain FH: breast cancer in first degree relative Urge and stress incontinence Aftercare following left shoulder joint replacement surgery Vaginal irritation Microhematuria Female pelvic pain Anxiety Depression Left anterior shoulder pain Surgical History H/O arthroscopy of shoulder Family History Mother Breast cancer Cervical cancer, Onset Age: 40 Brother Lymphoma Paternal Uncle No problems noted. 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 Vagina pink moist with menses cervix multiparous pink moist with menses uterus small anteverted mobile nontender adnexa neither enlarged neither tender good tone with Kegel. External Female Exam: normal external appearance Speculum Exam - Vagina: normal appearance of the vagina and normal vaginal discharge Speculum Exam - Cervix: normal appearance of the cervix Bimanual exam- vagina & uterus: normal bimanual exam, uterine size normal, consistency normal, uterine mobility normal, uterine shape normal and non-tender Bimanual Exam- Adnexa, other: normal adnexae, no masses and No adnexal tenderness Assessment & Plan Assessment & Plan (1) Vaginal itching: Code(s): N89.8 - Other specified noninflammatory disorders of vagina (2) Surveillance for Depo-Provera contraception: Code(s): Z30.42 - Encounter for surveillance of injectable contraceptive (3) Pelvic congestion syndrome: Code(s): N94.89 - Other specified conditions associated with female genital organs and menstrual cycle (4) control counseling: Code(s): Z30.09 - Encounter for other general counseling and advice on contraception Plan Patient is here because about 4 days ago she washed with [place] soap and then she had sex with her that night and ever since then she started being much more itchy and inflamed and her vaginal area she has been using just cool water and trying to not scratch. She thinks that it was the soap that really set her up, then she started bleeding, light though she does not really get a period very much since she has been on Depo for so many years she loves the Depo but after having a long conversation at her more recent visit about the thinning of her bones she does not want to have that happen. She also is deficient in vitamin-D and has been taking that through her primary and also getting vitamin B12 shots as she was having trouble taking that. She has had 4 pregnancies and 2 were miscarriages any even with those she had severe hyper emesis gravidarum and with the 2 pregnancies that she carried she had severe hyperemesis for the entire 9 months. She works night shifts and she has been losing weight because she has trouble eating she is so exhausted she fixes the meals for her children but then is too tired to really eat well herself. She says all her coworkers have the opposite problem. She also recently had a visit where she was discussing her varicose veins in her pelvis that were contributing to pelvic pain. As part of this whole discussion she has been re considering her use of Depo-Provera for control and though she loves it she thinks she will be stopping but she has not fully decided what she will do instead so much of this visit was actually spent discussing options for her given that she is 33 years old combination control pills and their analogs the patches and rings would probably not be the best options to start at this stage. Discussed the other options available including Nexplanon and its side effects Mirena and its side effects and ParaGard IUD. (norethindrone OCPs were not addressed is in that the patient's reason for stopping pills in the past was forgetting). I gave her information about all 3 methods and she is going to think about it some more and eat if she decides before her next visit she could come in and signed the consent forms for methods that need to be ordered through her pharmacy provider or else she could come for the consultation visit and decide there. In terms of the vaginal itch she now has bleeding that is very much like a periods so while her vulva appears a little bit swollen it is not possible to fully see whether not it is consistent with yeast though it sounds like it could possibly be either chemical irritation from the [place] Spring or yeast. Discussed that when blood is present very often Gardnerella will be detected on testing so that is also possibility but it may not be the cause of the issue. Full teaching about all the methods and their side effects were done. Also discussed that I will treat the yeast as to her preference. Given that she has the menstrual flow now vaginal cream may not be too much of benefit but she thinks she preferred the pill in any case so I will prescribe Diflucan and she asked if she could have a cream in case she still has some symptoms. So I will prescribe both to her [facility] pharmacy. She has future appointments set up so she will be seen as scheduled. Orders: Orders Bacterial Vaginosis Panel Today N89.8 - Other specified noninflammatory disorders of vagina CT NG by PCR Today N89.8 - Other specified noninflammatory disorders of vagina Medications: New miconazole nitrate 2% (Miconazole-7) 1 appful vaginal BEDTIME 45 grams 1RF 7 days fluconazole may repeat second dose 72 hrs after first dose if symptoms persist 150 mg PO Q3D 2 tabs 0RF 2 doses Coding Level of Care Code Est Pt Level 3 (43814) Diagnoses Vaginal itching N89.8 Surveillance for Depo-Provera contraception Z30.42 Pelvic congestion syndrome N94.89 control counseling Z30.09
== END 2023-07-05 15:40 | disposition home or self-care (01) ==
PROVIDERS: PCP Nurse Practitioner Family; Visit Provider Advanced Practice Midwife
DX: N89.8 Other specified noninflammatory disorders of vagina (principal); Z30.42 Encounter for surveillance of injectable contraceptive; N94.89 Other specified conditions associated with female genital organs and menstrual cycle; Z30.09 Encounter for other general counseling and advice on contraception
CPT/HCPCS: 99213

== ENCOUNTER 2023-07-05 14:56 | Outpatient (REF) | payer OTHER, SELFPAY | END 2023-07-05 14:57 | disposition home or self-care (01) | LOC: HO.LAB 14:56 | PROVIDERS: PCP Nurse Practitioner Family; Visit Provider Advanced Practice Midwife | DX: N89.8 Other specified noninflammatory disorders of vagina (principal); N94.89 Other specified conditions associated with female genital organs and menstrual cycle | CPT/HCPCS: 99212 ==

== ENCOUNTER 2023-07-05 15:33 | Outpatient (REF) | payer OTHER, SELFPAY ==
[2023-07-06 09:29] LABS: CT PCR NOT DETECTED (Not Detect.); NG PCR NOT DETECTED (Not Detect.)
[2023-07-06 10:39] LABS: BV Int Neg Control Negative (Negative); BV Int Pos Control Positive (Positive)
== END 2023-07-05 15:34 | disposition home or self-care (01) ==
LOC: HO.LNP 15:33
PROVIDERS: Visit Provider Advanced Practice Midwife
DX: N89.8 Other specified noninflammatory disorders of vagina (principal)
CPT/HCPCS: 0353U; 87480; 87510; 87660

== ENCOUNTER 2023-08-02 09:01 | Outpatient (AMB) | payer OTHER, SELFPAY ==
[2023-08-02 09:23] VITALS: BMI 21.0
--- NOTE | 2023-08-02 09:23 | AM.OFFVISNUR ---
Intake Vital Signs 08/02/23 09:23 Height 5 ft 6 in Weight 130 lb 2 oz BMI 21.0 Intake Visit Reasons: Depo Hebrew Professor Required: No Allergies bee pollen [BEE STINGS] Allergy (Unknown, Verified 07/05/23 15:06) SWELLING SEASONAL ALLERGIES Allergy (Intermediate, Uncoded 06/16/23 11:47) RUNNY NOSE AND WATERY EYES Is last menstrual period known: No Post menopausal: No Patient : No Nursing Note Kaye is here for her scheduled Depo Provera injection. She is thinking about changing her control method. She reports she has been on Depo for ~6 yrs. She also reports her weight is dropping, ~4-5 lbs since 06/16/23. She is being followed by her PCP for weight loss. She comments, I think I need to start taking Ensure again . Pt was advised she can schedule a control consult and talk with her provider about the options. 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 She also reports she does not eat a healthy diet because she is so busy, stopping for fast food frequently. Her sleep is also disordered d/t working nights. Otherwise she has no complaints. She denies regular menses. Pt will f/u with her PCP re: her weight. Pt tolerated injection well. She will schedule an appt for Depo injection in 12 weeks. She will think about scheduling a control consult as well. Pt verbalizes understanding and agrees with plan. No further questions. Office Procedures Depo Questionnaire If YES to any of the following questions, please consult a provider. Date of last injection: 05/06/23 Date of last gynecology exam: 10/09/22 Menstrual pattern since last injection has been: Not Applicable Irregular bleeding?: No Breast lumps or other breast changes?: No Changes in weight or appetite?: Yes Depression or changes in mood?: No Abnormal hair growth or loss?: No Skin problems (rash, acne, discoloration)?: No Pain at the injection site?: No Headaches?: No Nervousness?: No Abdominal pain or cramping?: No Dizziness or nausea?: No Fatigue or weakness?: No Decrease in sexual drive?: No Chest pain or shortness of breath?: No Swelling in arms or legs?: No Form completed by?: Melida Melgar Office Meds Depo-Provera 150 mg/mL intramuscular syringe Performing Provider: Olivia Lima CNM Performing Location: [facility] Administered by: Melida Melgar on 08/02/23 09:38 Dose Route Admin Location Dispensed Lot Number Expiration Date NDC Web Project Manager 150 mg IM right deltoid 1 mL [id number] 07/13/25 12210-263-95 [facility] Coding Level of Care Code Established Pt Est Pt Level 1 (18069) Patient Type Established History Problem Focused Medical Decision Making Straight Forward Time Spent (min) 15 Assessment & Plan Assessment & Plan Orders: Orders AMB Medroxyprogesterone Injection Patient Supplied Today Z30.42 - Encounter for surveillance of injectable contraceptive
== END 2023-08-02 09:18 | disposition home or self-care (01) ==
LOC: HO.HWS 09:01
PROVIDERS: PCP Nurse Practitioner Family; Visit Provider Advanced Practice Midwife
DX: Z30.42 Encounter for surveillance of injectable contraceptive (principal)

== ENCOUNTER → 2023-08-02 09:01 | Outpatient (BNVA) | payer OTHER, SELFPAY | PROVIDERS: PCP Nurse Practitioner Family; Visit Provider Advanced Practice Midwife | DX: Z30.42 Encounter for surveillance of injectable contraceptive (principal) | CPT/HCPCS: 96372; 99211; J1050 ==

== ENCOUNTER 2023-09-14 16:46 | Emergency (ER) | payer OTHER, SELFPAY ==
[2023-09-14 17:41] VITALS: BP 110/64; PULSE 106; RESP 18; O2SAT 96; BMI 20.5
--- NOTE | 2023-09-14 17:42 | ED.GENADULT ---
HPI - General Adult General Chief complaint: Upper Respiratory Symptoms Stated complaint: headache, diarrhea, bodyaches Related Data Home Medications Medication Instructions Recorded Confirmed cholecalciferol (vitamin D3) 1,250 1,250 mcg PO QWEEK 07/05/23 mcg (50,000 unit) capsule mecobalamin (vitamin B12) 10,000 mcg IM 07/05/23 mcg solution for injection Previous Rx's Medication Instructions Recorded medroxyprogesterone 150 mg/mL 150 mg IM [id number] #1 mL 10/09/22 intramuscular suspension (Depo-Provera) fluconazole 150 mg tablet 150 mg PO Q3D 2 doses #2 tabs 07/05/23 miconazole nitrate 2 % vaginal 1 appful vaginal BEDTIME 7 days 07/05/23 cream (Miconazole-7) #45 grams metronidazole 0.75 % (37.5 mg/5 1 appful vaginal BEDTIME 5 days 07/06/23 gram) vaginal gel #70 grams Allergies Allergy/AdvReac Type Severity Reaction Status Date / Time bee pollen [BEE STINGS] Allergy Unknown SWELLING Verified 07/05/23 15:06 SEASONAL ALLERGIES Allergy Intermediate RUNNY NOSE Uncoded 06/16/23 11:47 AND WATERY EYES PMFSH Past Medical History Onset Date is defined in the Problem List Problems that require an onset date and time if occurred within 24 hrs of arrival to the ED Aortic Dissection and Rupture; Neurologic impairment; Cardiopulmonary Arrest; Endotracheal Intubation; Insertion or Replacement of Mechanical Circulatory Assist Device Medical History (Updated 09/16/23 @ 09:01 by RERE Vora) Pelvic congestion syndrome Breast pain, right Sensation of pressure in bladder area Vaginal Discharge Pelvic pain FH: breast cancer in first degree relative Urge and stress incontinence Aftercare following left shoulder joint replacement surgery Vaginal irritation Microhematuria Female pelvic pain Anxiety Depression Left anterior shoulder pain Surgical History H/O arthroscopy of shoulder Family History Family History Mother Breast cancer Cervical cancer, Onset Age: 40 Brother Lymphoma Paternal Uncle No problems noted. 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 33 y/o F presenting to the ER with complaints of headache, cough, sore throat, body aches, and nausea since this morning. VSS. Plan: Viral swabs Reevaluation(s) Reevaluation #1: pt eloped prior to being fully evaluated. Discharge Plan Discharge Clinical Impression: Cough Patient Disposition: Left W/O Completing Treatment Prescriptions: No Action metronidazole 0.75 % (37.5mg/5 gram) gel 1 appful vaginal BEDTIME 5 Days Qty: 70 0RF medroxyprogesterone [Depo-Provera] 150 mg/mL suspension 150 mg IM [id number] Qty: 1 4RF mecobalamin (vitamin B12) 10,000 mcg recon soln IM cholecalciferol (vitamin D3) 1,250 mcg (50,000 unit) capsule 1,250 mcg PO QWEEK miconazole nitrate [Miconazole-7] 2 % cream 1 appful vaginal BEDTIME 7 Days Qty: 45 1RF fluconazole 150 mg tablet 150 mg PO Q3D 0 Days Qty: 2 0RF Rx Instructions: may repeat second dose 72 hrs after first dose if symptoms persist Interventions: LWBS Worksheet Last Done: 09/14/23 19:54 Discharge Date/Time: 09/14/23 19:54
== END 2023-09-14 19:54 | disposition left against medical advice (07) ==
PROVIDERS: Emergency Provider Emergency Medicine
DX: R05.9 Cough, unspecified (principal); R51.9 Headache, unspecified; J02.9 Acute pharyngitis, unspecified
CPT/HCPCS: 99281

== ENCOUNTER 2023-10-27 08:47 | Outpatient (AMB) | payer OTHER, SELFPAY ==
[2023-10-27 09:23] VITALS: BMI 20.6
--- NOTE | 2023-10-27 09:23 | AM.OFFVISNUR ---
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 Pt is thinking about stopping Depo. She has been on it for several years. No new medical problems. She is trying to gain weight, current BMI 20.6 but she does not feel comfortable. She is scheduled for AG in November and will discuss with provider. She reports her PCP is doing a work up. Pt also reports she needs a mammogram as her Mom has breast cancer. She has not been tested for BRACA gene but would like to be tested. Advised pt to discuss this with provider at . Pt tolerated injection well today. She was advised to schedule next injection in 12 weeks and can cancel appt. if she changes control. Pt verbalizes understanding and agrees with plan. No further questions. Office Procedures Depo Questionnaire If YES to any of the following questions, please consult a provider. Date of last injection: 08/02/23 Date of last gynecology exam: 10/09/22 Menstrual pattern since last injection has been: Not Applicable Irregular bleeding?: No Breast lumps or other breast changes?: No Changes in weight or appetite?: No Depression or changes in mood?: No Abnormal hair growth or loss?: No Skin problems (rash, acne, discoloration)?: No Pain at the injection site?: No Headaches?: No Nervousness?: No Abdominal pain or cramping?: No Dizziness or nausea?: No Fatigue or weakness?: No Decrease in sexual drive?: No Chest pain or shortness of breath?: No Swelling in arms or legs?: No Form completed by?: Melida Melgar RN Office Meds Depo-Provera 150 mg/mL intramuscular syringe Performing Provider: Olivia Lima CNM Performing Location: [facility] [place] [facility] Administered by: Melida Melgar on 10/27/23 09:32 Dose Route Admin Location Dispensed Lot Number Expiration Date NDC Ginner 150 mg IM right deltoid 1 mL [id number] 12/11/25 75036-901-85 [facility] Coding Level of Care Code Established Pt Est Pt Level 1 (26447) Patient Type Established History Problem Focused Medical Decision Making Straight Forward Time Spent (min) 12 Assessment & Plan Assessment & Plan Plan Schedule next Depo injection in 12 weeks. Orders: Orders AMB Medroxyprogesterone Injection Patient Supplied Today Z30.42 - Encounter for surveillance of injectable contraceptive Patient Instructions: Schedule next Depo injection in 12 weeks.
== END 2023-10-27 09:06 | disposition home or self-care (01) ==
LOC: HO.HWS 08:47
PROVIDERS: Visit Provider Advanced Practice Midwife
DX: Z30.42 Encounter for surveillance of injectable contraceptive (principal)

== ENCOUNTER → 2023-10-27 08:47 | Outpatient (BNVA) | payer OTHER, SELFPAY | PROVIDERS: Visit Provider Advanced Practice Midwife | DX: Z30.42 Encounter for surveillance of injectable contraceptive (principal) | CPT/HCPCS: 96372; 99211; J1050 ==

== ENCOUNTER 2023-11-23 14:01 | Outpatient (AMB) | payer OTHER, SELFPAY ==
--- NOTE | 2023-11-23 14:04 | MHC.OFFVIS ---
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 Doing well with concerns: cramping, sharp, throbbing mild pain for two weeks. Hx. of prominent pelvic vessels. She reports some weight and hair. She tries to eat healthy and stays active with exercise. On Depo for many years, thinking about stopping, unsure what she wants in the future. She is interested in doing no hormones at all but will need some form of reliable control. She denies any contraindications to control such as: migraines with aura, history of DVT or pulmonary emboli, high blood pressure, liver disease, thrombolic disorders, Lupus, +ALICE, breast cancer, or smoking. Currently is sexually active. She denies vaginal itching and irritation. STI screening offered; she accepts. Denies family history of breast, ovarian or colon cancer. Last pap smear 2020, negative. [facility] Medical History Pelvic congestion syndrome Breast pain, right Sensation of pressure in bladder area Vaginal Discharge Pelvic pain FH: breast cancer in first degree relative Urge and stress incontinence Aftercare following left shoulder joint replacement surgery Vaginal irritation Microhematuria Female pelvic pain Anxiety Depression Left anterior shoulder pain Surgical History H/O arthroscopy of shoulder Family History Mother Breast cancer Cervical cancer, Onset Age: 40 Brother Lymphoma Paternal Uncle No problems noted. 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 Current occupational exposures/hazards: No Sexual orientation: Straight/Heterosexual Gender identity: Female Female Reproductive History Menstrual Age of Menarche: 12 control method: progesterone injection (Depo 10/27/23) Total pregnancies: 4 Full term: 2 Number of Living Children: 2 Ab induced: 1 Ab spontaneous: 1 Date of last pap smear: 09/23/20 (neg pap and hpv) Review of Systems Const All systems reviewed & are unremarkable except as noted in HPI and below Reports as per HPI Eyes Reports no additional complaints ENT Reports no additional complaints Card Reports no additional complaints Resp Reports no additional complaints GI Reports as per HPI and Reports no additional complaints Reports as per HPI Musc Reports no additional complaints Skin/Breast Reports as per HPI Neuro Reports no additional complaints Psych Reports no additional complaints Endo Reports no additional complaints Kashif/Lymph Reports no additional complaints Aller/Immun Reports no additional complaints Physical Exam Vital Signs: Last Vital Signs BP 88/62 L 11/23/23 14:06 BMI result Body Mass Index 21.1 Const General: cooperative, healthy appearing, no acute distress, well developed and alert Orientation/consciousness: patient oriented x3 HEENT Head: Yes normal to inspection Eyes General: appearance normal, both eyes and all related structures Neck Neck: Yes normal visual inspection Thyroid: Thyroid normal Chest Chest palpation & inspection: normal inspection of the chest and other (no puckering, dimpling, peau de orange, retraction, discharge, masses) Breast/axilla inspection: normal inspection of the breasts Breast/axilla palpation: normal palpation of the breasts Resp Effort & Inspection: normal respiratory effort GI Inspection: Yes normal to inspection Palpation (GI): Soft to palpation Rectal Exam - Female: deferred General: Yes bladder normal to palpation External Female Exam: normal external appearance and normal appearance of the urethra Speculum Exam - Vagina: normal appearance of the vagina, normal palpation and normal vaginal discharge Speculum Exam - Cervix: normal appearance of the cervix and normal palpation Bimanual exam- vagina & uterus: normal bimanual exam, normal palpation, uterine size normal, bladder normal to palpation, normal palpation and non-tender Bimanual Exam- Adnexa, other: no masses Skin General skin exam: no rashes or lesions noted Rashes: no rashes Neuro General: patient oriented x3 Cognition (Neuro): normal cognition Extrem General: Yes normal to inspection Psych Attitude: cooperative Thought process: Normal thought process present Assessment & Plan Assessment & Plan (1) Surveillance for Depo-Provera contraception: Code(s): Z30.42 - Encounter for surveillance of injectable contraceptive (2) Encounter for well woman exam with routine gynecological exam: Code(s): Z01.419 - Encounter for gynecological examination (general) (routine) without abnormal findings (3) Breast pain, right: Code(s): N64.4 - Mastodynia (4) Pelvic congestion syndrome: Code(s): N94.89 - Other specified conditions associated with female genital organs and menstrual cycle (5) Pelvic pain: Code(s): R10.2 - Pelvic and perineal pain Plan Discussed: Current recommendations for pap smears per ASCCP guidelines. Breast awareness and periodic breast exams. Maintain a healthy lifestyle including a well balanced diet and routine exercise. control hormone use warnings: go to ER if and loss of vision, blindness, severe headache, chest pain or difficulty breathing, severe abdominal pain, or any pain or swelling in an extremity. control booklet given discussed options, she has considering a tubal ligation. Advised she can make a consult appointment to discuss with the Dr. Evaristo GAMING for treatment of pelvic congestion syndrome. Plan future discussion at follow up after ultrasound is completed. Return to the office for test results in person. Patient verbalizes understanding and agrees to the plan of care. She was given opportunity to ask questions and all questions were answered to the best of my ability. 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 This note is constructed using voice recognition software. While every effort has been made to ensure accuracy, long winder tender errors may have been included. Orders: Orders US pelvic and transvaginal Today N94.89 - Other specified conditions associated with female genital organs and menstrual cycle, R10.2 - Pelvic and perineal pain CT NG by PCR Today R10.2 - Pelvic and perineal pain Bacterial Vaginosis Panel Today R10.2 - Pelvic and perineal pain Medications: Refilled medroxyprogesterone (Depo-Provera) 150 mg IM [id number] 1 mL 4RF Coding Level of Care Code Est Pt Prev Care 18-39y(62105) Diagnoses Surveillance for Depo-Provera contraception Z30.42 Encounter for well woman exam with routine gynecological exam Z01.419 Breast pain, right N64.4 Pelvic congestion syndrome N94.89 Pelvic pain R10.2
[2023-11-23 14:06] VITALS: BP 88/62; BMI 21.1
== END 2023-11-23 14:45 | disposition home or self-care (01) ==
LOC: HO.HWS 14:01
PROVIDERS: Visit Provider Advanced Practice Midwife
DX: Z30.42 Encounter for surveillance of injectable contraceptive (principal); Z01.419 Encounter for gynecological examination (general) (routine) without abnormal findings; N64.4 Mastodynia; N94.89 Other specified conditions associated with female genital organs and menstrual cycle; R10.2 Pelvic and perineal pain
CPT/HCPCS: 99395

== ENCOUNTER 2023-11-23 14:01 | Outpatient (REF) | payer OTHER, SELFPAY | END 2023-11-23 14:02 | disposition home or self-care (01) | LOC: HO.LNP 14:01 | PROVIDERS: Visit Provider Advanced Practice Midwife | DX: Z01.419 Encounter for gynecological examination (general) (routine) without abnormal findings (principal); N64.4 Mastodynia; N94.89 Other specified conditions associated with female genital organs and menstrual cycle; R10.2 Pelvic and perineal pain | CPT/HCPCS: 99395 ==

== ENCOUNTER 2023-11-23 14:38 | Outpatient (REF) | payer OTHER, SELFPAY ==
[2023-11-24 06:01] LABS: CT PCR NOT DETECTED (Not Detect.); NG PCR NOT DETECTED (Not Detect.)
[2023-11-24 13:35] LABS: BV Int Neg Control Negative (Negative); BV Int Pos Control Positive (Positive)
== END 2023-11-23 14:39 | disposition home or self-care (01) ==
LOC: HO.LAB 14:38
PROVIDERS: Visit Provider Advanced Practice Midwife
DX: R10.2 Pelvic and perineal pain (principal)
CPT/HCPCS: 0353U; 87480; 87510; 87660

== ENCOUNTER 2023-12-01 13:14 | Outpatient (REF) | payer OTHER, SELFPAY ==
--- NOTE | ~2023-12-01 | US_ITS ---
EXAM: Pelvic Ultrasound CLINICAL INDICATION: Pelvic pain COMPARISON: Pelvic ultrasound 05/31/2023 TECHNIQUE: The pelvis was evaluated using transabdominal and transvaginal imaging. FINDINGS: The uterus measures 6.2 x 3.4 x 4.1 cm in longitudinal by AP by transverse dimension. The endometrial stripe is not thickened and measures 0.3 cm. Some small calcifications are noted within the lower uterine segment and cervix, nonspecific. Prominent periuterine vasculature. The left ovary measures approximately 1.8 x 1.6 x 1.3 cm and is normal. The right ovary measures approximately 2.3 x 1.8 x 1.9 cm and is also normal. There are no abnormal adnexal masses. There are prominent vessels noted within the bilateral adnexal regions. There is no free fluid in the pelvis. US/US pelvic and transvaginal IMPRESSION: 1. Normal thickness endometrial stripe. 2. Prominent vessels are noted in the periuterine region and within the bilateral adnexal regions. This is a nonspecific finding but can be seen in the setting of pelvic congestion syndrome.
== END 2023-12-01 13:15 | disposition home or self-care (01) ==
LOC: HO.US 13:14
PROVIDERS: Visit Provider Advanced Practice Midwife
DX: N94.89 Other specified conditions associated with female genital organs and menstrual cycle (principal); R10.2 Pelvic and perineal pain
CPT/HCPCS: 76830; 76856

== ENCOUNTER 2023-12-14 09:17 | Emergency (ER) | payer OTHER, SELFPAY ==
[2023-12-14 09:30] VITALS: BP 110/65; PULSE 83; RESP 16; TEMP 37.1; O2SAT 98; BMI 20.4
--- NOTE | 2023-12-14 11:39 | ED_ITS ---
HPI - Ear Problem General Chief complaint: Ear Problems Stated complaint: BilateralEar Infection Time Seen by Provider: 12/14/23 10:46 Source: patient and RN notes reviewed Mode of arrival: ambulatory Limitations: no limitations History of Present Illness HPI Narrative: This is a 33-year-old female presenting to the emergency department complaints of bilateral ear pain and pressure x3 days. Patient states that over this last week she has been sick with what she thought was the flu. She states that her symptoms have since resolved however states that she has had persistent ear pressure and pain, right ear worse than left. She has been taking Sudafed, and Mucinex which has provided her with minimal relief. She states that every time she gets sick she often times gets pressure as well as ear infections. She states that she had leftover Augmentin which she has been taking, states that she is taken 4 doses of this without any relief. She denies any fevers, chills, chest pain, shortness of breath, abdominal pain, nausea, vomiting or diarrhea. No other complaints or concerns at this time. MD Complaint: ear pain and decreased hearing Location: bilateral Duration: constant Severity: moderate Relieving factors: nothing Exacerbating factors: nothing Discharge from ear: no Associated symptoms ear: decreased hearing and external ear tenderness Treatment prior to arrival: none Related Data Home Medications Medication Instructions Recorded Confirmed cholecalciferol (vitamin D3) 1,250 1,250 mcg PO QWEEK 07/05/23 mcg (50,000 unit) capsule mecobalamin (vitamin B12) 10,000 mcg IM 07/05/23 mcg solution for injection Previous Rx's Medication Instructions Recorded medroxyprogesterone 150 mg/mL 150 mg IM [id number] #1 mL 11/23/23 intramuscular suspension (Depo-Provera) acetaminophen 650 mg 650 mg PO Q8H PRN fever or pain 12/14/23 tablet,extended release (Tylenol 8 #30 tabs Hour) cefuroxime axetil 500 mg tablet 500 mg PO BID 7 days #14 tabs 12/14/23 ibuprofen 600 mg tablet 600 mg PO Q6H PRN pain #30 tabs 12/14/23 Allergies Allergy/AdvReac Type Severity Reaction Status Date / Time bee pollen [BEE STINGS] Allergy Unknown SWELLING Verified 11/23/23 14:06 SEASONAL ALLERGIES Allergy Intermediate RUNNY NOSE Uncoded 06/16/23 11:47 AND WATERY EYES Review of Systems Review of Systems: Yes all other systems are reviewed and are negative Constitutional: Constitutional: Reports as per [facility] Past Medical History Medical History Pelvic congestion syndrome Breast pain, right Sensation of pressure in bladder area Vaginal Discharge Pelvic pain FH: breast cancer in first degree relative Urge and stress incontinence Aftercare following left shoulder joint replacement surgery Vaginal irritation Microhematuria Female pelvic pain Anxiety Depression Left anterior shoulder pain Surgical History H/O arthroscopy of shoulder Family History Family History Mother Breast cancer Cervical cancer, Onset Age: 40 Brother Lymphoma Paternal Uncle No problems noted. 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 Current occupational exposures/hazards: No Sexual orientation: Straight/Heterosexual Gender identity: Female Physical Exam Vital Signs: Vital Signs: Last Vital Signs Temp 98.8 F 12/14/23 09:30 Pulse 83 12/14/23 09:30 Resp 16 12/14/23 09:30 BP 110/65 12/14/23 09:30 Pulse Ox 98 12/14/23 09:30 O2 Del Method Room Air 12/14/23 09:30 BMI result Body Mass Index 20.4 Const: General: cooperative, comfortable and no acute distress Orientation/consciousness: patient oriented x3 Limitations: no limitations HEENT: Other: Right TM is erythematous and bulging, ear canal unremarkable, mild tenderness palpation with earlobe tugging. Left ear TM slightly erythematous, nonbulging, no canal edema or erythema. No mastoid tenderness to palpation. Head: Yes normal to inspection, Yes normocephalic and Yes atraumatic Ears: hearing grossly normal bilaterally General nose exam: Normal external nose present Face and sinus: Yes normal facial exam Mouth: Normal oral and palatal mucosa present, oropharynx normal and moist mucous membranes Throat: Yes posterior oropharynx normal, Yes tonsils normal and Yes uvula midline Eyes: General: appearance normal, both eyes and all related structures Eyelids: Yes eyelids normal Conjunctivae: conjunctivae normal Sclerae: sclerae normal Pupils: Equal, round and reactive pupils present EOM: EOMs intact bilaterally Neck: Neck: Yes normal visual inspection, Yes full ROM and Yes no lymphadenopathy Lymphatic: no lymphadenopathy noted Chest: Chest palpation & inspection: normal inspection of the chest Resp: Effort & Inspection: normal respiratory effort and able to speak in complete sentences Auscultation: clear to auscultation bilaterally, no crackles, no rales, no rhonchi and no wheezes Cardio: Rate: regular rate Rhythm: regular rhythm Heart sounds: S1 normal heart sound present and S2 normal heart sound present GI: Inspection: Yes normal to inspection Skin: General skin exam: no rashes or lesions noted Trauma: no lacerations or abrasions Wounds: no wounds Neuro: General: patient oriented x3 and moves all extremities Cranial nerves: Yes Equal, round and reactive pupils present Extrem: General: Yes normal to inspection Right upper extremity: normal to inspection Left upper extremity: normal to inspection Right lower extremity: normal to inspection Left lower extremity: normal to inspection Medical Decision Making Medical Decision Making MDM Narrative: This is a 33-year-old female presenting to the emergency department with complaints of bilateral ear pain and pressure x3 days. On arrival, vital signs within normal limits. Differential diagnoses include otitis media, otitis externa, TM perforation, Eustachian tube dysfunction. Less likely mastoiditis. Physical exam consistent with right otitis media. She has already been taking Augmentin which she had left over from a previous infection without any relief. Will treat with course of cefuroxime. Given return precautions. She understands agrees with plan. Patient stable for discharge Differential Diagnosis Differential Diagnoses: The differential diagnosis associated with the presentation includes See above Admission/Observation Consideration of admission/observation: Escalation of care including admission/observation considered Discharge Plan Discharge Clinical Impression: Otitis media Patient Disposition: Home, Self-Care Instructions: Ear Infection (ED) Additional Instructions: Your seen in the emergency department due to your pain. You have a ear infection. Please take prescribed antibiotic as directed, finish the entire course even if your feeling better. Discontinue your other antibiotic while taking this medication. Sudafed PE can also help with congestion. Take ibuprofen and/or Tylenol as needed for pain and symptoms. Drink plenty of fluids get plenty of rest. If any new or worsening symptoms occur including but not limited to worsening pain, fevers, chills, chest pain, shortness of breath, please return for re- evaluation. Prescriptions: New cefuroxime axetil 500 mg tablet 500 mg PO BID 7 Days Qty: 14 0RF ibuprofen 600 mg tablet 600 mg PO Q6H PRN (Reason: pain) Qty: 30 0RF acetaminophen [Tylenol 8 Hour] 650 mg tablet extended release 650 mg PO Q8H PRN (Reason: fever or pain) Qty: 30 0RF No Action mecobalamin (vitamin B12) 10,000 mcg recon soln IM cholecalciferol (vitamin D3) 1,250 mcg (50,000 unit) capsule 1,250 mcg PO QWEEK medroxyprogesterone [Depo-Provera] 150 mg/mL suspension 150 mg IM [id number] Qty: 1 4RF Referrals: Dallas Dietrich [Physician] - Stand Alone Forms: Work/School Release
[2023-12-14 11:54] VITALS: BP 113/63; PULSE 74; RESP 16; TEMP 36.4; O2SAT 99
== END 2023-12-14 11:54 | disposition home or self-care (01) ==
PROVIDERS: Emergency Provider Emergency Medicine; PCP Nurse Practitioner Family
DX: H66.91 Otitis media, unspecified, right ear (principal)
CPT/HCPCS: 99282; 99283

== ENCOUNTER 2024-01-20 13:11 | Outpatient (AMB) | payer OTHER, SELFPAY ==
--- NOTE | 2024-01-20 13:22 | A.OFFVIS_ITS ---
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 Required: No Information Interpreted: non-clinical & clinical Accompanied by: Self / Same As Patient Allergies bee pollen [BEE STINGS] Allergy (Unknown, Verified 01/20/24 13:30) SWELLING SEASONAL ALLERGIES Allergy (Intermediate, Uncoded 01/20/24 13:30) RUNNY NOSE AND WATERY EYES Is last menstrual period known: No (depo) HPI Comments Details: Presenting for Depo-Provera and would like to discuss different options of contraception PFSH Medical History Pelvic congestion syndrome Breast pain, right Sensation of pressure in bladder area Vaginal Discharge Pelvic pain FH: breast cancer in first degree relative Urge and stress incontinence Aftercare following left shoulder joint replacement surgery Vaginal irritation Microhematuria Female pelvic pain Anxiety Depression Left anterior shoulder pain Surgical History H/O arthroscopy of shoulder Family History Mother Breast cancer Cervical cancer, Onset Age: 40 Brother Lymphoma Paternal Uncle No problems noted. 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 Current occupational exposures/hazards: No Sexual orientation: Straight/Heterosexual Gender identity: Female Female Reproductive History Menstrual Age of Menarche: 12 Review of Systems Const All systems reviewed & are unremarkable except as noted in HPI and below Reports as per HPI and Reports no additional complaints GI Reports no additional complaints Reports no additional complaints Physical Exam Vital Signs: Last Vital Signs BP 108/66 01/20/24 13:29 BMI result Body Mass Index 20.4 Assessment & Plan Assessment & Plan (1) Surveillance for Depo-Provera contraception: Code(s): Z30.42 - Encounter for surveillance of injectable contraceptive Category: Medical Plan: Depo-Provera 150 mg IM given to the patient, instructions given the patient to schedule another appointment for another Depo-Provera within 90 days (2) Family planning advice: Code(s): Z30. - Encounter for other general counseling and advice on contraception Category: Medical Plan: Discussed with the patient the different options of control including control pills/Nuvaring (are contraindicated in patients with migraine with aura), stay on DMPA, different types of IUD ?s (levo norgestrel and copper), sterilization. All the pros, cons, risks and benefits of each were discussed with the patient. The patient decided to go ahead with ParaGard IUD, so a more detailed discussion was carried on including types (Progesterone, Copper), mechanism of action, risks (infection, uterine perforation, failure with ectopic , septic AB, dysmenorrhea with Paraguard, others) benefits (efficient contraceptive method, hypo menorrhea with Progesterone IUD, others) GC/CG will be taken the day of IUD insertion and the patient was asked to schedule ParaGard IUD insertion few days prior to the next Depo-Provera appointment. All questions answered, the patient verbalized understanding Coding Level of Care Code Est Pt Level 3 (19552) Diagnoses Surveillance for Depo-Provera contraception Z30.42 Family planning advice Z30.09
[2024-01-20 13:29] VITALS: BP 108/66; BMI 20.4
== END 2024-01-20 14:04 | disposition home or self-care (01) ==
PROVIDERS: Visit Provider Obstetrics & Gynecology
DX: Z30.42 Encounter for surveillance of injectable contraceptive (principal); Z30.09 Encounter for other general counseling and advice on contraception
CPT/HCPCS: 99213

== ENCOUNTER → 2024-01-20 13:11 | Outpatient (BNVA) | payer OTHER, SELFPAY | PROVIDERS: Visit Provider Obstetrics & Gynecology | DX: Z30.42 Encounter for surveillance of injectable contraceptive (principal); Z30.09 Encounter for other general counseling and advice on contraception | CPT/HCPCS: 96372; 99212; J1050 ==

== ENCOUNTER 2024-02-24 08:28 | Outpatient (AMB) | payer OTHER, SELFPAY ==
[2024-02-24 08:33] VITALS: BP 112/64; BMI 20.4
--- NOTE | 2024-02-24 08:33 | A.OFFVIS_ITS ---
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 On a previous visit she had reported pelvic pain that was sharp and stabbing for several weeks, she no longer is experience any pelvic pain and denies any symptoms of fullness, pressure, or aching. She is considering stopping Depo and giving her body a break from hormones, is planning to do a ParaGard IUD in the future. She has a history of heavy prolonged periods in the past lasting up to 2 weeks. Her last Depo injection was January 19, her next is due no later than April 20. [facility] Medical History Pelvic congestion syndrome Breast pain, right Sensation of pressure in bladder area Vaginal Discharge Pelvic pain FH: breast cancer in first degree relative Urge and stress incontinence Aftercare following left shoulder joint replacement surgery Vaginal irritation Microhematuria Female pelvic pain Anxiety Depression Left anterior shoulder pain Surgical History H/O arthroscopy of shoulder Family History Mother Breast cancer Cervical cancer, Onset Age: 40 Brother Lymphoma Paternal Uncle No problems noted. 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 Current occupational exposures/hazards: No Sexual orientation: Straight/Heterosexual Gender identity: Female Female Reproductive History Menstrual Age of Menarche: 12 control method: none Date of last pap smear: 09/24/20 (negative) Review of Systems Const All systems reviewed & are unremarkable except as noted in HPI and below Endo Reports no additional complaints Physical Exam Vital Signs: Last Vital Signs BP 112/64 02/24/24 08:33 BMI result Body Mass Index 20.4 Const General: cooperative, healthy appearing and no acute distress Psych Appearance: well kempt Attitude: cooperative Thought process: Normal thought process present Results Reviewed Results Reviewed: [address] [address] Ultrasound Report Signed Patient: Kaye Ruff MR#: [id number] : 1990 Acct:[id number] Age/Sex: 33 / F ADM Date: 12/01/23 Loc: HO.US Attending Dr: Olivia Lima CNM Ordering Physician: Olivia Lima CNM Date of Service: 12/01/23 Procedure(s): US pelvic and transvaginal Accession Number(s): [id number] cc: Olivia Lima CNM~ EXAM: Pelvic Ultrasound CLINICAL INDICATION: Pelvic pain COMPARISON: Pelvic ultrasound 05/31/2023 TECHNIQUE: The pelvis was evaluated using transabdominal and transvaginal imaging. FINDINGS: The uterus measures 6.2 x 3.4 x 4.1 cm in longitudinal by AP by transverse dimension. The endometrial stripe is not thickened and measures 0.3 cm. Some small calcifications are noted within the lower uterine segment and cervix, nonspecific. Prominent periuterine vasculature. The left ovary measures approximately 1.8 x 1.6 x 1.3 cm and is normal. The right ovary measures approximately 2.3 x 1.8 x 1.9 cm and is also normal. There are no abnormal adnexal masses. There are prominent vessels noted within the bilateral adnexal regions. There is no free fluid in the pelvis. US/US pelvic and transvaginal IMPRESSION: 1. Normal thickness endometrial stripe. 2. Prominent vessels are noted in the periuterine region and within the bilateral adnexal regions. This is a nonspecific finding but can be seen in the setting of pelvic congestion syndrome. Dictated By: Cooper Maher MD Signed By: <Electronically signed by Cooper Maher MD in OV> 12/03/23 1109 DD/ 1355 TD/TT: Procurement Specialist: PD Assessment & Plan Assessment & Plan (1) Pelvic congestion syndrome: Code(s): N94.89 - Other specified conditions associated with female genital organs and menstrual cycle Category: Medical (2) Encounter to discuss test results: Code(s): Z71.2 - Person consulting for explanation of examination or test findings (3) Counseling for control regarding intrauterine device (IUD): Code(s): Z30.09 - Encounter for other general counseling and advice on contraception Plan Discussed: Ultrasound findings pelvic congestion syndrome suggested, discussed the nature of this symptoms, she can look up on the web at reputable web sites listed for further information. Menstrual cycle changes in how and what the uterine lining developes. ParaGard IUD verses Mirena IUD, risks and benefits, effect on menstrual cycle, side effects. Booklets on both given for her to do some comparisons. She could return to the office for IUD insert the week that her Depo-Provera is due. Pre procedural anticipatory guidance reviewed including to have something to eat and drink and take 3 Advil with food per manufacture's recommendations 1 hour before IUD insertion, she is leaning towards a Mirena IUD at this time. All of her questions and concerns were addressed to the best of my ability and shared decision making. She is agreeable to the plan of care. This note is constructed using voice recognition software. While every effort has been made to ensure accuracy, foundry engineer errors may have been included. Coding Level of Care Code Est Pt Level 3 (41832) Diagnoses Pelvic congestion syndrome N94.89 Encounter to discuss test results Z71.2 Counseling for control regarding intrauterine device (IUD) Z
== END 2024-02-24 10:02 | disposition home or self-care (01) ==
PROVIDERS: PCP Nurse Practitioner Family; Visit Provider Advanced Practice Midwife
DX: N94.89 Other specified conditions associated with female genital organs and menstrual cycle (principal); Z71.2 Person consulting for explanation of examination or test findings; Z30.09 Encounter for other general counseling and advice on contraception
CPT/HCPCS: 99213

== ENCOUNTER → 2024-02-24 08:28 | Outpatient (BNVA) | payer OTHER, SELFPAY | PROVIDERS: PCP Nurse Practitioner Family; Visit Provider Advanced Practice Midwife | DX: N94.89 Other specified conditions associated with female genital organs and menstrual cycle (principal); Z30.09 Encounter for other general counseling and advice on contraception; Z71.2 Person consulting for explanation of examination or test findings | CPT/HCPCS: 99212 ==

== ENCOUNTER 2024-09-13 09:54 | Emergency (ER) | payer OTHER, SELFPAY ==
[2024-09-13 09:56] VITALS: BP 129/79; PULSE 83; RESP 18; TEMP 36.6; O2SAT 95; BMI 27.4
--- NOTE | 2024-09-13 11:04 | ED_ITS ---
HPI - General Adult General Chief complaint: Ear Problems Stated complaint: r ear pain Time Seen by Provider: 09/13/24 11:00 Source: patient, RN notes reviewed and old records reviewed Mode of arrival: ambulatory Limitations: no limitations History of Present Illness ED Provider: Fortino NEWMAN narrative: Patient is a 34-year-old female presenting to the emergency department with complaint of right ear pain for the past 3 days. Last night was at work, bent forward, and when she stood up she heard a click and pain increased. Reports she has recently been experiencing post nasal drip. Denies fevers, cough, chest pain, sore throat. MD complaint: right ear pain Onset (ago): day(s) Severity: severe Quality: aching Treatments prior to arrival: none Related Data Home Medications ?Medication ?Instructions ?Recorded ?Confirmed cholecalciferol (vitamin D3) 1,250 1,250 mcg PO QWEEK 07/05/23 mcg (50,000 unit) capsule mecobalamin (vitamin B12) 10,000 mcg IM 07/05/23 mcg solution for injection Previous Rx's ?Medication ?Instructions ?Recorded medroxyprogesterone 150 mg/mL 150 mg IM [id number] #1 mL 11/23/23 intramuscular suspension (Depo-Provera) acetaminophen 650 mg 650 mg PO Q8H PRN fever or pain 12/14/23 tablet,extended release (Tylenol 8 #30 tabs Hour) cefuroxime axetil 500 mg tablet 500 mg PO BID 7 days #14 tabs 12/14/23 ibuprofen 600 mg tablet 600 mg PO Q6H PRN pain #30 tabs 12/14/23 amoxicillin 875 mg tablet 875 mg PO BID #14 tabs 09/13/24 Allergies Allergy/AdvReac Type Severity Reaction Status Date / Time bee pollen [BEE STINGS] Allergy Unknown SWELLING Verified 09/13/24 09:59 SEASONAL ALLERGIES Allergy Intermediate RUNNY NOSE Uncoded 02/24/24 08:34 AND WATERY EYES Review of Systems Review of Systems: As per hPI. Yes all other systems are reviewed and are negative Constitutional: Constitutional: Reports as per HPI [facility] Past Medical History Medical History Pelvic congestion syndrome Breast pain, right Sensation of pressure in bladder area Vaginal Discharge Pelvic pain FH: breast cancer in first degree relative Urge and stress incontinence Aftercare following left shoulder joint replacement surgery Vaginal irritation Microhematuria Female pelvic pain Anxiety Depression Left anterior shoulder pain Surgical History H/O arthroscopy of shoulder Family History Family History Mother Breast cancer Cervical cancer, Onset Age: 40 Brother Lymphoma Paternal Uncle No problems noted. 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 Blood pressure normal. Heart rate normal. Respiratory rate normal. Temperature normal. Oxygen saturation normal. Const General: cooperative, healthy appearing and no acute distress Orientation/consciousness: oriented to person, oriented to place, oriented to time and patient oriented x3 Limitations: no limitations HENMT Head: Yes normocephalic and Yes atraumatic Ears: external ears normal, TM normal on the left, mastoids normal bilaterally, no periauricular adenopathy and TM abnormal bulging on the right, wth effusion serous on the right and erythematous on the right General nose exam: Normal external nose present Face and sinus: Yes face symmetric Mouth: oropharynx normal and moist mucous membranes Throat: Yes uvula midline Eyes Pupils: Equal, round and reactive pupils present Neck Neck: Yes normal visual inspection and Yes supple Resp Effort & Inspection: normal respiratory effort and able to speak in complete sentences Auscultation: clear to auscultation bilaterally Cardio Rate: regular rate Rhythm: regular rhythm Heart sounds: S1 normal heart sound present and S2 normal heart sound present GI Palpation (GI): Soft to palpation and nontender Auscultation: normoactive bowel sounds General: Yes no CVA tenderness Back/Spine/Pelvis Back: no CVA tenderness Skin General skin exam: elasticity normal and turgor normal Neuro General: oriented to person, oriented to place, oriented to time, patient oriented x3, moves all extremities, no focal motor deficits and CN's II-XI intact bilaterally Cranial nerves: Yes Equal, round and reactive pupils present Cognition (Neuro): normal cognition Extrem General: Yes full ROM, Yes no pedal edema and Yes no calf tenderness Psych Mental Status: mental status grossly normal Affect: normal affect Thought process: Normal thought process present Medical Decision Making Medical Decision Making [facility] Narrative: Patient is a 34-year-old female presenting to the emergency department with complaint of right ear pain for the past 3 days. On exam patient is awake, A+Ox3, VS WNL, afebrile, normal neurological exam without focal deficits, physical exam findings as above. Given reported symptoms and physical exam findings, initial differential includes but is not limited to otitis media, otitis externa, cerumen impaction. Physical exam findings consistent with AOM of right ear. Will treat with amoxicillin. Advised Tylenol, ibuprofen, warm compresses. Follow up with PCP as needed. Return precautions discussed at bedside. Patient verbalized understanding of and agreement with plan. Differential Diagnosis Differential Diagnoses: The differential diagnosis associated with the presentation includes As per [facility] External Record Review External record reviewed: Inpatient record, Office record and Outpatient record Prescription Management I considered prescription management with: Antibiotic Discharge Plan Discharge Clinical Impression: Acute otitis media Qualifiers: Laterality: right Patient Disposition: Home, Self-Care Instructions: Ear Infection (ED) Additional Instructions: You were evaluated in the emergency department today for ear pain. Your evaluation suggests that your pain is due to an ear infection. Please take your prescribed antibiotics as directed for the full course of the medication. You can apply warm compresses to the area for 10-15 minutes at a time several times daily. We recommend that you take 650 mg of Tylenol or 600 mg of ibuprofen every 6 hours as needed. If necessary, you can alternate these medications every 3 hours. For example, at 9:00 a.m. take Tylenol, then at noon take ibuprofen, then at 3:00 p.m. take Tylenol, etc.. Please follow up with your primary care provider within two days. Return to the emergency department if you experience hearing loss, discharge from your ear, headaches, fevers, recurrent vomiting, or any other concerning symptoms. Prescriptions: New amoxicillin 875 mg tablet 875 mg PO BID Qty: 14 0RF No Action cefuroxime axetil 500 mg tablet 500 mg PO BID 7 Days Qty: 14 0RF ibuprofen 600 mg tablet 600 mg PO Q6H PRN (Reason: pain) Qty: 30 0RF acetaminophen [Tylenol 8 Hour] 650 mg tablet extended release 650 mg PO Q8H PRN (Reason: fever or pain) Qty: 30 0RF mecobalamin (vitamin B12) 10,000 mcg recon soln IM cholecalciferol (vitamin D3) 1,250 mcg (50,000 unit) capsule 1,250 mcg PO QWEEK medroxyprogesterone [Depo-Provera] 150 mg/mL suspension 150 mg IM [id number] Qty: 1 4RF Stand Alone Forms: Work/School Release Print Language: Moldovan
[2024-09-13 11:32] VITALS: BP 110/63; PULSE 71; RESP 16; TEMP 36.3; O2SAT 98
[2024-09-13 11:49] VITALS: BP 110/63; PULSE 71; RESP 16; TEMP 36.3; O2SAT 98
== END 2024-09-13 11:50 | disposition home or self-care (01) ==
PROVIDERS: Emergency Provider Emergency Medicine; PCP Nurse Practitioner Family
DX: H66.91 Otitis media, unspecified, right ear (principal); H92.01 Otalgia, right ear
CPT/HCPCS: 99282; 99283

== ENCOUNTER 2024-11-28 14:46 | Outpatient (AMB) | payer OTHER, SELFPAY ==
--- NOTE | 2024-11-28 14:54 | MHC.OFFVIS ---
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: No Ceramic Engineering Professor Services: Ceramic Engineering Professor Present Information Interpreted: clinical only Director Of Medical Services: Director Of Medical Services Present Allergies bee pollen [BEE STINGS] Allergy (Unknown, Verified 11/28/24 14:58) SWELLING SEASONAL ALLERGIES Allergy (Intermediate, Uncoded 11/28/24 14:58) RUNNY NOSE AND WATERY EYES Medication List - Last Reconciled 11/28/24 by Maryann Stokes CNM No Known Home Meds Is last menstrual period known: Yes Last menstrual period: 11/28/24 HPI HPI BC Consult: Details: control she has had a number of different methods in the past she has had the ParaGard IUD Mirena IU S and Depo-Provera. She was most recently on the Depo and she allowed it to wear off as of May she wanted to be off hormones altogether as she had been on it a long time. But she does need a method of control and it is challenging to try and decide and she has reviewed the options in great detail with previous provider's as well and is still trying to make her final decision and has very many things in the decision to consider. [facility] Medical History Pelvic congestion syndrome Breast pain, right Sensation of pressure in bladder area Vaginal Discharge Pelvic pain FH: breast cancer in first degree relative Urge and stress incontinence Aftercare following left shoulder joint replacement surgery Vaginal irritation Microhematuria Female pelvic pain Anxiety Depression Left anterior shoulder pain Surgical History H/O arthroscopy of shoulder Family History Mother Breast cancer Cervical cancer, Onset Age: 40 Brother Lymphoma Paternal Uncle No problems noted. 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 Current occupational exposures/hazards: No Sexual orientation: Straight/Heterosexual Gender identity: Female Female Reproductive History Menstrual Age of Menarche: 12 Duration of menses: 3-5 days Date of last menstrual period: 11/28/24 control method: none Total pregnancies: 2 Full term: 2 Date of last pap smear: 09/24/20 (neg.) Physical Exam Vital Signs: Last Vital Signs BP 118/70 11/28/24 14:56 BMI result Body Mass Index 27.4 Assessment & Plan Assessment & Plan (1) control counseling: Code(s): Z30.09 - Encounter for other general counseling and advice on contraception Category: Medical (2) Pelvic congestion syndrome: Code(s): N94.89 - Other specified conditions associated with female genital organs and menstrual cycle Category: Medical Plan Discussed her past history each method in great detail. She does not remember having a problem with the ParaGard IUD and she can not remember if the ParaGard made her cramps or anything any worse even with her pelvic congestion syndrome.. She remembers that the Mirena IU S was okay and she did not get her period with it but it was extremely painful to take out. She remembers that the provider supposed that perhaps it had become embedded or something. She was on Depo-Provera for very long time and she talked to a friend who is also on it a long time a new needed to have a bone scan though she does not know if she had any actual issues with her bones and she thinks she should have been taken off of it sooner. She is kind of glad to have her periods coming back normally She has just had return of menses she had a normal period last month that lasted 4 days and her period Again came down today about 1 month after. She has tried to convince her to have a vasectomy but no argument that she can come up with has worked so far she had 2 pregnancies 18 years ago (she shared that I was the CNM with her and helped her in that delivery) and 11 years ago as well she also had 2 miscarriages and she also had 2 pregnancies that were so placed by hyperemesis that she could not continue the as she was so sick so she had 2 abortions. Her has 6 children over all including the last that they had together. Patient also has a concern about decreased libido in the she is concerned about decreased libido with any of the methods of control.. I asked her to think back to 2 weeks ago 2 weeks after her 1st turned menses and 2 weeks before the menses that started today, and reflect on whether not she had increased libido along with symptoms of ovulation at that time and she remarked that indeed she had. Discussed the change in libido over the years for many women but also that most women noticed increased libido around the time of ovulation and that with the hormone free method she would be able to capitalize on that.. So she made her decision to try for ParaGard IUD I am having her sign the form today to ordered from her insurance company. Discussed that it takes time for it to come in discussed that she would be called when it did arrive at the hospital however she should call every couple of weeks to check on it to see if this in yet. Discussed that I very much would want to insert the ParaGard IUD or indeed a Mirena if she had so chose, with the beginning of her menses closest to the beginning day of her. It can be tricky to schedule. I also offered to send a prescription for misoprostol that she could insert on the day of the scheduled insertion and if she is not getting a lot of cramping repeat the dose a couple of hours before insertion. We agreed on this plan and she signed a form today and we will hopefully if everything works out able to insert a ParaGard IUD with her next menses and if not that menses the 1 after that. Timeframe/Date Comment Ordering ParaGard IUD today Next visit to insert ParaGard close to the beginning of her menses Please note 40 minutes discussed her history with all of the methods of control in detail and all of the factors in her decision making. Medications: New misoprostol [address] one tab 6 hrs prior to iud insertion, if no or minimal cramping, repeat dose 2 hours before planned insertion, on day 2 of menses. 2 tabs 0RF Coding Level of Care Code Est Pt Level 3 (81169) Diagnoses control counseling Z30.09 Pelvic congestion syndrome N94.89
[2024-11-28 14:56] VITALS: BP 118/70; BMI 27.4
--- OUTSIDE RECORDS SUMMARY | 2024-11-28 17:34 | XMS_ITS | Clinical Summary ---
Author Organization [facility] Address [address] [place] [address] Phone Care Team Providers Care Metallurgy Laboratory Technician Name Role Phone Unavailable Primary Care Provider Unavailabl e Immunizations Immunization Administration Dates Next Due DTP 05/21/1993, 1,01/02/1991,1990,04/13/1989 Hep B, ped/adol 11/30/2001,06/07/2001,05/10/2001 Hib (PRP-T) 11/01/1990 MMR 05/10/2001,11/01/1990 OPV 05/21/1993, 1,11/01/1990,1988 Td (adult) (MBL), 2 Lf tetan us toxoid, PF, adsorbed 05/10/2001 Family History Relation Name Status Comments Mother Alive Mother: Migrain es Social History Tobacco Use Types Packs/Day Years Used Date Smoking Tobacco: Never Assessed Comments Unknown Sex and Gender Information Value Date Recorded Sex Assigned at Not on file Legal Sex Female 4:37 PM EDT Gender Identity Not on file Sexual Orientation Not on file Plan of Treatment Health Maintenance Due Date Last Done Comments DTaP,Tdap,and Td Vaccines (6 - Tdap) 05/11/2001 05/10/2001, 05/21/1993, 07/28/1991, Additional history exists Varicella Vaccines (1 of 2 - 13+ 2-dose series) 06/07/2001 Influenza Vaccines (#1) 2024 COVID-19 Vaccine (1 - 2023- season) 2024 HIB Vaccines Completed 11/01/1990 IPV Vaccines Completed 05/21/1993, 12/13, 11/01/1990, Additional history exists MMR Vaccines Completed 05/10/2001, 11/01/1990 Hepatitis B Vaccines Completed 11/30/2001, 06/07/2001, 05/10/2001 HPV Vaccines Aged Out No longer eligi ble based on patient's age to complete this topic Hepatitis A Vaccines Aged Out No long er eligible based on patient's age to complete this topic Men B Vaccine Aged Out No longer elig ible based on patient's age to complete this topic Meningococcal Vaccine Aged Out No simone jayshree eligible based on patient's age to complete this topic Pneumococcal Vaccine Aged Out No long er eligible based on patient's age to complete this topic
--- OUTSIDE RECORDS SUMMARY | 2024-11-28 17:34 | XMS_ITS | Encounter Summary ---
Author Organization [facility] Address [address] [place] [address] Phone Care Team Providers Care Information Officer Name Role Phone Unavailable Primary Care Provider Unavailabl e Encounter Details Date Type Department Care Team (Late st Contact Info) Description 04/29/2017 Conversion Encounter [facility] - [address] [address] Social History Tobacco Use Types Packs/Day Years Used Date Smoking Tobacco: Never Assessed Comments Unknown Sex and Gender Information Value Date Recorded Sex Assigned at Not on file Legal Sex Female 4:37 PM EDT Gender Identity Not on file Sexual Orientation Not on file documented as of this encounter Plan of Treatment Not on file documented as of this encounter Visit Diagnoses Not on filedocumented in this encounter
== END 2024-11-28 15:54 | disposition home or self-care (01) ==
LOC: HO.HWSM 14:47
PROVIDERS: PCP Nurse Practitioner Family; Visit Provider Advanced Practice Midwife
DX: Z30.09 Encounter for other general counseling and advice on contraception (principal); N94.89 Other specified conditions associated with female genital organs and menstrual cycle
CPT/HCPCS: 99213

== ENCOUNTER → 2024-11-28 14:46 | Outpatient (BNVA) | payer OTHER, SELFPAY | PROVIDERS: PCP Nurse Practitioner Family; Visit Provider Advanced Practice Midwife | DX: Z30.09 Encounter for other general counseling and advice on contraception (principal); N94.89 Other specified conditions associated with female genital organs and menstrual cycle | CPT/HCPCS: 99212 ==

== ENCOUNTER 2024-12-29 10:24 | Outpatient (REF) | payer OTHER, SELFPAY ==
--- OUTSIDE RECORDS SUMMARY | 2024-12-29 13:24 | XMS_ITS | Clinical Summary ---
Author Organization [facility] Address [address] [place] [address] Phone Care Team Providers Care Storeroom Clerk Name Role Phone Unavailable Primary Care Provider [...]
--- OUTSIDE RECORDS SUMMARY | 2024-12-29 13:24 | XMS_ITS | Encounter Summary ---
Author Organization [facility] Address [address] [place] [phone] Phone Care Team Providers Care Otr Driver Name Role Phone Unavailable Primary Care Provider Unavailabl e Encounter Details Date Type Department Care Team (Late st Contact Info) Description 04/29/2017 Conversion Encounter [facility] - [address] [id number] Social History Tobacco Use Types Packs/Day Years [...]
[2024-12-30 02:45] LABS: CT PCR NOT DETECTED (Not Detect.); NG PCR NOT DETECTED (Not Detect.)
== END 2024-12-29 10:25 | disposition home or self-care (01) ==
LOC: HO.LNP 10:24
PROVIDERS: PCP Nurse Practitioner Family; Visit Provider Advanced Practice Midwife
DX: Z30.430 Encounter for insertion of intrauterine contraceptive device (principal)
CPT/HCPCS: 58300; 81025; 87491; 87591; J7300

== ENCOUNTER 2024-12-29 10:24 | Outpatient (AMB) | payer OTHER, SELFPAY ==
--- OUTSIDE RECORDS SUMMARY | 2024-12-29 11:20 | XMS_ITS | Encounter Summary ---
Author Organization [facility] Address [address] [place] [id number] Phone Care Team Providers Care Tobacco Sampler Name Role Phone Unavailable Primary Care Provider Unavailabl e Encounter Details Date Type Department Care Team (Late st Contact Info) Description 04/29/2017 Conversion Encounter [facility] - [address] [address] Social History Tobacco Use Types Packs/Day Years [...]
--- OUTSIDE RECORDS SUMMARY | 2024-12-29 11:20 | XMS_ITS | Clinical Summary ---
Author Organization [facility] Address [address] [place] [address] Phone Care Team Providers Care Cigar Binder Name Role Phone Unavailable Primary Care Provider [...]
--- NOTE | 2024-12-29 11:43 | A.OFFVIS_ITS ---
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 Is last menstrual period known: Yes Last menstrual period: 12/28/24 HPI HPI IUD/Insertion(paragard): Details: Patient is here for her ParaGard insertion she did place 1 misoprostol this morning her periods is light but getting a little heavier today it started yesterday. She has been abstaining from intercourse until the IUD could be placed. Her last period was exactly a month ago. She has had the ParaGard IUD for about 5 years then she switch to Depo and she also had the Mirena at 1 point she was most recently on the Depo but stopped a few months ago she just does not want to have another baby at this time of her life so she wants a reliable method of control. Full discussion of the options occurred at the last visit. [facility] Medical History Pelvic congestion syndrome Breast pain, right Sensation of pressure in bladder area Vaginal Discharge Pelvic pain FH: breast cancer in first degree relative Urge and stress incontinence Aftercare following left shoulder joint replacement surgery Vaginal irritation Microhematuria Female pelvic pain Anxiety Depression Left anterior shoulder pain Surgical History H/O arthroscopy of shoulder Family History Mother Breast cancer Cervical cancer, Onset Age: 40 Brother Lymphoma Paternal Uncle No problems noted. Social History Household Members: Spouse and Children Housing: Apartment Alcohol intake: never Patient Tobacco Use Status: Never used Tobacco service: No Current occupational status: employed Current occupation: [employer] Current occupational exposures/hazards: No Sexual orientation: Straight/Heterosexual Gender identity: Female Female Reproductive History Menstrual Age of Menarche: 12 Date of last menstrual period: 12/28/24 control method: copper IUCD Office Procedures IUD Insert/Removal Details Details: ---Patient is here for her IUD insertion. Bimanual exam was done. Her uterus is firm, nontender, and appropriate sized, and is midposition to anteverted cervix is very firmly closed she does have menses I was unable to feel the misoprostol tablet in her vagina. Speculum was placed and testing done for gonorrhea and chlamydia prior to swabbed with a Betadine. . The cervix was swabbed with Betadine, Tenaculum was placed on the cervix slowly to minimize cramping. The uterus was sounded slowly and gently she show a measurement of 7 cm. The IUD was loaded per the newer procedures, removed from its package, after checking identifying information and lot dates and expiration dates and and gently inserted into the os, as per the IUD insertion procedure. The strings were then trimmed to 3-4 centimetres. The tenaculum was removed and gentle pressure applied with a swab, until any bleeding subsided from the tenaculum sites. The speculum was gently removed. The patient sat up. She was experiencing some chills and a little brief nausea consistent with vasovagal response but felt okay. I Reviewed what to expect, and what indications would necessitate a call. Pt to call for fever, untoward pain or cramping. I reviewed any appropriate backup method. Pt to return for recheck as scheduled. [id number] Insertion Procedure code (CPT) selection complete Office Meds ParaGard T 380A 380 square mm intrauterine device Performing Provider: Maryann Stokes CNM Performing Location: [facility] Administered by: Porsche Ramos CMA on 12/29/24 12:53 Dose Route Admin Location Dispensed Lot Number Expiration Date [facility] [place] [facility] [place] [id number] 04/12/27 [address]-5 [employer] Results AMB Test Urine AMB Test Urine Negative Last Edit by Porsche Ramos CMA on 11:55 Results Reviewed Results Reviewed: Laboratory Last Values [facility]st Clinic Negative 12/29/24 11:54 roseline: Kaye Ruff Age/Sex: 30/F Attending: Claude Gomez MD : 1990 Submitted by: Claude Gomez MD Copies to: MR #: [id number] Status: DEP REF Collected: 09/23/20 Location: .LAB Received: 09/24/20 Interpretation General Category: Negative for intraepithelial lesion/ malignancy. Adequacy: Endocervical component present. Interpretation: Inflammation with associated cellular changes. HPV mRNA E6/E7: Not detected. This assay detects E6/E7 viral messenger RNA (mRNA) from 14 high-risk HPV types (16, 18, 31, 33, 35, 39, 45, 51, 52, 56, 58, 59, 66, 68) HPV testing performed by [email or web address], [place], [place]. See reference laboratory portion of the EMR for entire report. Clinical Information LMP: 08/2020 Previous PAP test: Unknown date/findings Material Received ThinPrep cervical Electronically Signed By: Tamiko Truong MD 10/04/20 1112 The Pap Test is a screening procedure with the inherent possibility of both false negative and false positive results. Results should be interpreted in the context of historic and current clinical findings. Reliability of the Pap Test is enhanced by performing the test on a regular repetitive basis. Patient: Page 1 of 1 Assessment & Plan Assessment & Plan (1) Counseling for control, intrauterine device: Code(s): Z30.09 - Encounter for other general counseling and advice on contraception Category: Medical (2) Encounter for insertion of ParaGard IUD: Comment: 12/29/2024., 7 cm uterus, strings trimmed to 3 cm, very mild vasovagal reaction. Code(s): Z30.430 - Encounter for insertion of intrauterine contraceptive device Category: Medical Plan Smooth insertion of ParaGard IUD in to 7 cm sounded uterus with very mild vasovagal response. Patient tolerated well with some cramping I could not locate the misoprostol tablet in her vagina so I was not able to remove it warned the patient that it may continue to dissolve and come out with her menses and to not be alarmed if she sees something whitish along with the Betadine and her menses on the pad, Reviewed the very mild vagal vasovagal response she recalls that she had more extreme symptoms when she was delivering her baby and I discussed how they are similar responses. We will see her in 6 weeks to see how she is doing patient to call if she has any difficulty in the meantime she is going to cigar packer and picker some ibuprofen on the way home and take 1-3 tablets at her discretion with food in her stomach. Orders: Orders AMB HCG Urine Test Today Z32.02 - Encounter for test, result negative CT NG by PCR Today Z30.430 - Encounter for insertion of intrauterine contraceptive device AMB IUD Insertion/Removal - Patient Supply Today Z30.430 - Encounter for insertion of intrauterine contraceptive device Coding Level of Care Code Est Pt Level 3 (85314) Diagnoses Counseling for control, intrauterine device Z30.09 Encounter for insertion of ParaGard IUD Z30.430 CPT Codes Details - CPT: 65141-OTJ Insertion ([id number])
== END 2024-12-29 13:01 | disposition home or self-care (01) ==
LOC: HO.HWS 10:24
PROVIDERS: PCP Nurse Practitioner Family; Visit Provider Advanced Practice Midwife
DX: Z30.430 Encounter for insertion of intrauterine contraceptive device (principal); Z30.09 Encounter for other general counseling and advice on contraception; Z32.02 Encounter for pregnancy test, result negative
CPT/HCPCS: 58300